=== PATIENT | male | born 1940 | race African-American/Black ===

== ENCOUNTER 2017-04-18 06:08 | Day surgery (SDC) | payer MEDICARE, OTHER ==
[2017-04-18] MEDS ORDERED: BRIMONIDINE 0.2% OPHTH DROPS 5 ML ONE ×2 (06:27→07:17)
[2017-04-18] MEDS ORDERED: TIMOLOL 0.5% OPHTH DROPS ONE ×2 (06:27→07:18)
[2017-04-18] MEDS ORDERED: PHENYLEPHRINE 2.5% OPHTH 2 ML DROPS ONE (06:29)
[2017-04-18] MEDS ORDERED: KETOROLAC 0.45% OPHTH DROPS ONE (06:29)
[2017-04-18] MEDS ORDERED: PROPARACAINE 0.5% OPHTH DROPS 15 ML ONE ×4 (06:30→13:23)
[2017-04-18] MEDS ORDERED: CYCLOPENTOLATE 1% OPHTH DROPS 2 ML ONE (06:30)
[2017-04-18] MEDS ORDERED: LACTATED RINGERS 1,000 ML IV ONE (06:37)
[2017-04-18] MEDS ORDERED: KETOROLAC 0.45% OPHTH DROPS OPTH ONE (06:46)
[2017-04-18] MEDS ORDERED: PROPARACAINE 0.5% OPHTH DROPS 15 ML OPTH ONE ×2 (06:46→07:42)
[2017-04-18] MEDS ORDERED: CYCLOPENTOLATE 1% OPHTH DROPS 2 ML OPTH ONE (06:46)
[2017-04-18] MEDS ORDERED: PHENYLEPHRINE 2.5% OPHTH 2 ML DROPS OPTH ONE (06:46)
[2017-04-18] MEDS ORDERED: TRIAMCINOLONE PF 40 MG/ML VIAL ONE (07:10)
[2017-04-18] MEDS ORDERED: ACETYLCHOLINE 20 MG/2 ML KIT IO ONE (07:10)
[2017-04-18] MEDS ORDERED: MIDAZOLAM 2 MG/2 ML VIAL IVP ONE (07:30)
[2017-04-18] MEDS ORDERED: BRIMONIDINE 0.2% OPHTH DROPS 5 ML OPTH ONE (07:41)
[2017-04-18] MEDS ORDERED: EPINEPHrine 1 MG/ML AMP IVP ONE (07:41)
[2017-04-18] MEDS ORDERED: CHONDR SULF/HYALURONATE SYRINGE IO ONE (07:42)
[2017-04-18] MEDS ORDERED: TRIAMCIN/MOXIFLOX/VANCO 1 ML VIAL IO ONE ×3 (07:42)
[2017-04-18] MEDS ORDERED: TIMOLOL 0.5% OPHTH DROPS OPTH ONE (07:42)
[2017-04-18] MEDS ORDERED: BSS/LIDOCAINE/EPINEPHRINE 1 ML SYRINGE IO ONE ×2 (07:42)
[2017-04-18 08:29] VITALS: BP 139/65
--- NOTE | 2017-04-19 02:43 | OPERATIVE REPORT ---
DATE OF SURGERY: 04/18/2017 00:00:00 PREOPERATIVE DIAGNOSIS: Significant cataract right eye. This is his first cataract surgery. POSTOPERATIVE DIAGNOSIS: Significant cataract right eye. This is his first cataract surgery. NAME OF PROCEDURE: Phacoemulsification posterior chamber intraocular lens implant right eye. SURGEON: Leroy Gong M.D. ANESTHESIA: Monitored anesthesia care. COMPLICATIONS: None. OPERATIVE INDICATIONS: This is a 76-year-old man with progressive vision loss in the right eye due to 2+ nuclear sclerotic, 2-3+ cortical and vacuolar cataract. Best corrected visual acuity was 20/25 wi th glare to 20/40 in the right eye. INDICATIONS FOR SURGERY: Difficulty reading, difficulty seeing words, closed captions and game scores on TV. Difficulty driving at low light or night and difficulty driving at night because of headlight s from other vehicles and/or street lights. He was consented at length concerning risks and benefits of cataract surgery after which he expressed a desire to proceed with surgery. OPERATIVE PROCEDURE: The patient was taken into OR #2 and placed under monitored anesthesia care. A s urgical timeout was conducted confirming correct patient, correct procedure and correct surgical site . He was placed under the LenSx laser and his eye docked with a laser interface. Laser performed a ca psulotomy and lens softening, phaco-wounds and ocular keratotomy incisions. He was then moved to the operating microscope, given topical anesthesia and prepped and draped in the usual sterile fashion. T he eye was entered at 12 and 9 o'clock positions. Intracameral Shugarcaine was injected into the ante rior chamber followed by Viscoat. Capsulorhexis flap created by the LenSx laser was removed from the anterior chamber. Nucleus was hydrodissected and phacoemulsification. Cortex was evacuated using auto mated and infusion aspiration. Provisc was injected in the capsular bag and a 19.0 Diopter intraocula r lens inserted into the bag. Approximately 0.8 mL of a mixture of triamcinolone, moxifloxacin, vanco mycin was injected in the subconjunctival and superior quadrant for infection and inflammation prophy laxis. I/A was used to evacuate the viscoelastic structures. The eye was inflated to a physiologic pr essure using balanced salt solution and found to be watertight. The patient was taken from the operat ing room in good condition and postoperative instructions. JOB #: [id number] EXT JOB #:[id number]
== END 2017-04-18 06:09 | disposition home or self-care (01) ==
LOC: SDS 06:08
PROVIDERS: ATTEND Ophthalmology
PROC: 08RJ3JZ Replacement of Right Lens with Synthetic Substitute, Percutaneous Approach (ICD-10-PCS; principal; 2017-04-18 07:30)
DX: E11.36 Type 2 diabetes mellitus with diabetic cataract (principal); H25.811 Combined forms of age-related cataract, right eye; M19.90 Unspecified osteoarthritis, unspecified site; D47.Z9 Other specified neoplasms of uncertain behavior of lymphoid, hematopoietic and related tissue; E78.5 Hyperlipidemia, unspecified; Z83.3 Family history of diabetes mellitus; Z80.9 Family history of malignant neoplasm, unspecified; Z79.82 Long term (current) use of aspirin; Z79.84 Long term (current) use of oral hypoglycemic drugs
CPT/HCPCS: 66984; A9270; J3490; J7120; V2632

== ENCOUNTER 2017-05-31 10:19 | Emergency (ER) | payer MEDICARE, OTHER ==
[2017-05-31 11:42] LABS: BASOPHILS % (AUTO) 0.8 %; EOSINOPHILS # (AUTO) 0.1 10^3/uL (0.0-0.7); EOSINOPHILS % (AUTO) 2.9 %; HCT - HEMATOCRIT 44.5 % (42.0-52.0); HGB - HEMOGLOBIN 14.7 g/dL (14.0-18.0); LYMPHOCYTES # (AUTO) 1.1 10^3/uL (1.5-3.5); LYMPHOCYTES % (AUTO) 22.2 %; MEAN CORPUSCULAR HEMOGLOBIN 29.8 pg (27.0-31.0); MEAN CORPUSCULAR VOLUME 90.5 fL (80.0-94.0); MONOCYTES # (AUTO) 0.4 10^3/uL (0.0-1.0); MONOCYTES % (AUTO) 8.1 %; NEUTROPHILS # (AUTO) 3.2 10^3/uL (1.5-6.6); RED BLOOD COUNT 4.92 10^6/uL (4.70-6.10); RED CELL DISTRIBUTION WIDTH 14.6 % (12.0-15.0); UNCORRECTED WHITE BLOOD COUNT 4.9 x10^3/uL; WHITE BLOOD COUNT 4.9 x10^3/uL (4.8-10.8)
[2017-05-31 11:55] LABS: ALBUMIN/GLOBULIN RATIO 1.3 (1.0-2.2); BILIRUBIN,TOTAL 0.6 mg/dL (0.2-1.0); CALCIUM 10.1 mg/dL (8.5-10.3); POTASSIUM 4.5 mmol/L (3.5-5.0); TOTAL PROTEIN 7.7 g/dL (6.7-8.2)
--- NOTE | 2017-05-31 12:23 | ED Physician Documentation ---
PD HPI FOCAL NEURO - Stated complaint Stated Complaint: DIZZY - Chief complaint Chief Complaint: Neuro - History obtained from History obtained from: Patient - History of Present Illness Timing - onset: Other (Very mildly for the last week but more suddenly today at 5 AM when getting out of bed he has been vertiginous, sometimes worse with head motion but sometimes just with looking straight forward. There is no associated headache or nausea. 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 This has left him with some movement difficulties although he does not have any disability on a daily basis.) Review of Systems Constitutional: denies: Fever, Chills Ears: denies: Loss of hearing, Ear pain Respiratory: denies: Dyspnea, Cough GI: denies: Abdominal Pain, Nausea, Vomiting PD PAST MEDICAL HISTORY - Past Medical History Cardiovascular: High cholesterol Respiratory: None Endocrine/Autoimmune: Type 1 diabetes GI: None : None HEENT: None Psych: None Musculoskeletal: Osteoarthritis Derm: None Other Past Medical History: POEM syndrome - Past Surgical History General: Colonoscopy - Present Medications Home Medications: Ambulatory Orders Medication Instructions Recorded Confirmed Aspirin 81 mg PO DAILY 04/17/17 04/17/17 Losartan Potassium 25 mg PO DAILY 04/17/17 04/17/17 Simvastatin 20 mg PO DAILY 04/17/17 04/17/17 metFORMIN [Glucophage] 850 mg PO BID 04/17/17 04/17/17 Meclizine [Antivert] 25 mg PO Q6H PRN #20 tablet 05/31/17 - Allergies Allergies/Adverse Reactions: Allergies Allergy/AdvReac Type Severity Reaction Status Date / Time lisinopril Allergy Edema Verified 04/17/17 13:33 - Social History Does the pt smoke?: No Smoking Status: Never smoker Does the pt drink ETOH?: No Does the pt have substance abuse?: No - Family History Family history: reports: Non contributory - Immunizations Immunizations are current?: Yes - POLST Patient has POLST: No PD ED PE NORMAL - Vitals Vital signs reviewed: Yes - General General: Alert and oriented X 3, No acute distress - HEENT HEENT: PERRL, EOMI - Neck Neck: Supple, no meningeal sign, No bony TTP - Cardiac Cardiac: RRR, No murmur - Respiratory Respiratory: No respiratory distress, Clear bilaterally - Abdomen Abdomen: Normal bowel sounds, Soft, Non tender - Back Back: No CVA TTP, No spinal TTP - Extremities Extremities: No edema, No calf tenderness / cord - Neuro Neuro: No motor deficit, No sensory deficit - Psych Psych: Normal mood, Normal affect NIHSS - Time Time: 12:15 - Level of Consciousness Level of consciousness: (0) Alert, Keenly responsive LOC Questions: (0) Answers both Q's correct LOC Commands: (0) Performs both correctly - Gaze Best Gaze: (0) Normal - Visual Visual: (0) No loss - Facial Palsy Facial Palsy: (0) Normal, symmetrical movement - Motor Arms (both separate) Motor Arm (right): (0) No drift Motor Arm (left): (0) No drift - Motor Legs (both separate) Motor Leg (right): (0) No drift Motor Leg (left): (0) No drift - Limb Ataxia Limb Ataxia: (2) Present in 2 limbs (Very mild in the Left upper and lower extremities) - Sensory Sensory: (0) Normal - Best Language Best Language: (0) No aphasia - Dysarthria Dysarthria: (0) Normal - Extinction and Inattention (formally neg Extinction and inattention: (0) No abnormality - Total Score/Results Total Score/Result: 2 Results - Vitals Vitals: Vital Signs - 24 hr 05/31/17 05/31/17 10:27 14:45 Temperature 37.1 C Heart Rate 75 72 Respiratory 16 16 Rate Blood Pressure 145/75 H 139/67 H O2 Saturation 100 98 Oxygen O2 Source Room air - EKG (time done) 1146 Rate: Rate (enter#) (67) Rhythm: NSR [place]: Normal Intervals: Normal NE QRS: LVH Ischemia: Normal ST segments Computer interpretation: Agree with computer - Labs Labs: Laboratory Tests 05/31/17 05/31/17 05/31/17 11:34 11:34 11:34 WBC 4.9 RBC 4.92 Hgb 14.7 Hct 44.5 MCV 90.5 MCH 29.8 MCHC 33.0 RDW 14.6 Plt Count 163 MPV 8.0 Neut # 3.2 Lymph # 1.1 L [place] # 0.4 Eos # 0.1 Baso # 0.0 Absolute Nucleated RBC 0.00 Nucleated RBCs 0.0 Sodium 137 Potassium 4.5 Chloride 102 Carbon Dioxide 28 Anion Gap 7.0 BUN 23 H Creatinine 1.0 Estimated GFR (MDRD) 89 Glucose 107 H Calcium 10.1 Total Bilirubin 0.6 AST 18 ALT 22 Alkaline Phosphatase 75 Troponin I < 0.04 Total Protein 7.7 Albumin 4.3 Globulin 3.4 Albumin/Globulin Ratio 1.3 Lipase 36 Urine Color Urine Clarity Urine pH Ur Specific [place] Urine Protein Urine Glucose (UA) Urine Ketones Urine Occult Blood Urine Nitrite Urine Bilirubin Urine Urobilinogen Ur Leukocyte Esterase Urine RBC Urine WBC Ur Squamous Epith Cells Urine Bacteria Ur Microscopic Review Urine Culture Comments 05/31/17 13:54 WBC RBC Hgb Hct MCV MCH MCHC RDW Plt Count MPV Neut # Lymph # [place] # Eos # Baso # Absolute Nucleated RBC Nucleated RBCs Sodium Potassium Chloride Carbon Dioxide Anion Gap BUN Creatinine Estimated GFR (MDRD) Glucose Calcium Total Bilirubin AST ALT Alkaline Phosphatase Troponin I Total Protein Albumin Globulin Albumin/Globulin Ratio Lipase Urine Color YELLOW Urine Clarity CLEAR Urine pH 7.0 Ur Specific [place] 1.020 Urine Protein 30 H Urine Glucose (UA) NEGATIVE Urine Ketones NEGATIVE Urine Occult Blood NEGATIVE Urine Nitrite NEGATIVE Urine Bilirubin NEGATIVE Urine Urobilinogen 0.2 (NORMAL) Ur Leukocyte Esterase NEGATIVE Urine RBC 0-5 Urine WBC 0-3 Ur Squamous Epith Cells NONE SEEN Urine Bacteria None Seen Ur Microscopic Review INDICATED Urine Culture Comments NOT INDICATED - Rads (name of study) MRI brain Radiology: Prelim report reviewed (No CVA, some small vessel ischemic change and mucosal thickening) PD MEDICAL DECISION MAKING - ED course ED course: 76-year-old gentleman presents with vertigo, some features of peripheral vertigo but some features concerning for central cause, as such an MRI was pursued without evidence of CVA. Departure - Departure Disposition: Home, Self Care Clinical Impression: Vertigo Condition: Good Record reviewed to determine appropriate education?: Yes Instructions: ED Vertigo Unspecified Prescriptions: Meclizine [Antivert] 25 mg PO Q6H PRN #20 tablet PRN Reason: Dizziness Comments: Call your doctor to arrange a follow-up appointment, make the next available appointment. In the interim, return anytime if worse or if new symptoms develop. Your blood pressure was elevated today on check into the emergency department. This does not mean that you have hypertension, it is a common phenomenon to come to the emergency department and have elevated blood pressure. I recommend that she see your primary care physician within the week to have it rechecked when you are feeling better.
[2017-05-31 14:26] LABS: BILIRUBIN,URINE NEGATIVE (NEGATIVE)
[2017-05-31 14:29] LABS: UA w/ MICROSCOPIC CHARGE YES
[2017-05-31 14:38] LABS: WBC,URINE 0-3 /HPF (0-3)
[2017-05-31 14:39] LABS: UR CULTURE IF IND NOT INDICATED
[2017-05-31 15:00] VITALS: BP 139/67
--- NOTE | 2017-05-31 15:05 | MRI Preliminary Report ---
Exam: MRI Brain W/O IMPRESSION: 1. No acute CVA 2. FLAIR hyperintensities in the cerebral hemisphere white matter bilaterally are nonspecific. Common ly, this is seen secondary to small vessel ischemic change. 3. Mild pansinus mucosal thickening [facility] SITE ID: [id number]
--- NOTE | 2017-05-31 16:28 | MRI Report ---
EXAM: MRI BRAIN WITHOUT CONTRAST EXAM DATE: 05/31/2017 02:51 PM. CLINICAL HISTORY: Vertigo on waking this morning. Vertigo last week. Radiation therapy 2011 with chem otherapy July 2016. POEMS syndrome. COMPARISON: None. TECHNIQUE: Multiplanar, multisequence T1-weighted and fluid-sensitive MR sequences of the brain were performed. Sequences optimized for routine evaluation. Other: None. IV Contrast: None. FINDINGS: No abnormal diffusion signal or magnetic susceptibility is identified in the brain parenchyma. No cerebellar tonsillar ectopia is present. Ventricles and sulci are within normal limits for the patient's age. Punctate FLAIR hyperintensities in the cerebral hemisphere white matter bilaterally are noted. Somewhat more confluent FLAIR hyperint ense signal is seen in the deep white matter of each cerebral hemisphere. No abnormal signal is seen in either cerebellum or in the brainstem. Expected flow voids are seen in the major intracranial vessels at the skull base. No mass is present in either orbit. An expected flow void is seen in the superior sagittal sinus. No abnormal T1 shortening is present in the brain parenchyma. IMPRESSION: 1. No acute CVA 2. FLAIR hyperintensities in the cerebral hemisphere white matter bilaterally are nonspecific. Common ly, this is seen secondary to small-vessel ischemic change. 3. Mild pansinus mucosal thickening. [facility] Referring Provider Line: [phone] SITE ID: [id number]
== END 2017-05-31 16:00 | disposition home or self-care (01) ==
LOC: ED 10:19
DX: R42 Dizziness and giddiness (principal); R03.0 Elevated blood-pressure reading, without diagnosis of hypertension; E10.42 Type 1 diabetes mellitus with diabetic polyneuropathy; Z79.84 Long term (current) use of oral hypoglycemic drugs; E78.00 Pure hypercholesterolemia, unspecified; M19.90 Unspecified osteoarthritis, unspecified site; Z79.82 Long term (current) use of aspirin
CPT/HCPCS: 36415; 70551; 80053; 81001; 81003; 83690; 84484; 85025; 87086; 93005; 99283; 99284

== ENCOUNTER 2017-08-08 06:09 | Day surgery (SDC) | payer MEDICARE, OTHER ==
[~2017-08-08 06:09] MED LIST: MIDAZOLAM 2 MG/2 ML VIAL IVP ONE
[2017-08-08] MEDS ORDERED: BRIMONIDINE 0.2% OPHTH DROPS 5 ML ONE ×2 (06:26→07:11)
[2017-08-08] MEDS ORDERED: PHENYLEPHRINE 2.5% OPHTH 2 ML DROPS ONE ×3 (06:27→06:57)
[2017-08-08] MEDS ORDERED: KETOROLAC 0.45% OPHTH DROPS ONE ×3 (06:27→06:57)
[2017-08-08] MEDS ORDERED: PROPARACAINE 0.5% OPHTH DROPS 15 ML ONE ×3 (06:28→06:57)
[2017-08-08] MEDS ORDERED: CYCLOPENTOLATE 1% OPHTH DROPS 2 ML ONE ×3 (06:28→06:57)
[2017-08-08] MEDS ORDERED: LACTATED RINGERS 500 ML IV ONE ×2 (06:45→07:31)
[2017-08-08] MEDS ORDERED: TIMOLOL 0.5% OPHTH DROPS ONE (07:11)
[2017-08-08] MEDS ORDERED: PROPARACAINE 0.5% OPHTH DROPS 15 ML LEFTEYE ONE (07:32)
[2017-08-08] MEDS ORDERED: BRIMONIDINE 0.2% OPHTH DROPS 5 ML OPTH ONE (07:42)
[2017-08-08] MEDS ORDERED: EPINEPHrine 1 MG/ML AMP IVP ONE (07:42)
[2017-08-08] MEDS ORDERED: TIMOLOL 0.5% OPHTH DROPS OPTH ONE (07:42)
[2017-08-08] MEDS ORDERED: CHONDR SULF/HYALURONATE SYRINGE IO ONE (07:42)
[2017-08-08] MEDS ORDERED: BSS/LIDOCAINE/EPINEPHRINE 1 ML SYRINGE IO ONE ×2 (07:45)
[2017-08-08] MEDS ORDERED: TRIAMCIN/MOXIFLOX/VANCO 1 ML VIAL IO ONE ×2 (07:45)
[2017-08-08 08:22] VITALS: BP 141/70
--- NOTE | 2017-08-08 08:31 | OPERATIVE REPORT ---
DATE OF SURGERY: 08/08/2017 00:00:00 PREOPERATIVE DIAGNOSIS: Visually significant cataract, left eye. Cataract surgery was performed on the right eye on 04/18/2017. POSTOPERATIVE DIAGNOSIS: Visually significant cataract, left eye. Cataract surgery was performed on the right eye on 04/18/2017. NAME OF PROCEDURE: Phacoemulsification posterior chamber intraocular lens implant, left eye. SURGEON: Leroy Gong MD. ANESTHESIA: Monitored anesthesia care. COMPLICATIONS: None. OPERATIVE INDICATIONS: This is a 76-year-old man with progressive vision loss in the left eye due to a 2+ nuclear sclerotic, 3+ cortical, and vacuolar cataract. Best corrected visual acuity was 20/30 with glare to 20/60 in the left eye. Indications for surgery were overall decrease in vision, difficulty seeing words on the computer screen, difficulty reading, difficulty seeing words and game scores on TV, difficulty seeing street signs, difficulty driving in low light or at night, difficulty driving at night because of headlights from other vehicles. He was consented at length concerning the risks and benefits of cataract surgery, after which he expressed a desire to proceed with surgery. OPERATIVE PROCEDURE: The patient was taken into OR #3 and placed under monitored anesthesia care. A surgical time-out was conducted confirming the correct patient, correct procedure and correct surgical site. He was placed under the LenSx laser and his eye docked to the laser interface. The laser performed the capsulotomy, lens softening, phaco wounds, and arcuate keratotomy incisions. He was then moved to the operating microscope, given topical anesthesia, and then prepped and draped in the usual sterile fashion. The eye was entered at the 6- and 3 o'clock positions. Intracameral Shugarcaine was injected into the anterior chamber, followed by Viscoat. Capsulorrhexis flap created by the LenSx laser was removed from the anterior chamber. The nucleus was hydrodissected and phacoemulsified. The cortex was evacuated using automated infusion aspiration. Provisc was injected in the capsular bag and a 19.5 diopter intraocular lens was inserted into the bag. Approximately 0.8 mL of a mixture of triamcinolone, moxifloxacin, and vancomycin was injected subconjunctivally in the superior quadrant for infection and inflammation prophylaxis. I/A was used to evacuate the viscoelastic materials. The eye was inflated to a physiologic pressure using balanced salt solution and found to be watertight. The patient was taken from the operating room in good condition and given postoperative instructions. JOB #: [id number] EXT JOB #:[id number] [email or web address]
== END 2017-08-08 06:10 | disposition home or self-care (01) ==
LOC: SDS 06:09
PROVIDERS: ATTEND Ophthalmology
PROC: 08RK3JZ Replacement of Left Lens with Synthetic Substitute, Percutaneous Approach (ICD-10-PCS; principal; 2017-08-08 07:30)
DX: H25.812 Combined forms of age-related cataract, left eye (principal); Z79.82 Long term (current) use of aspirin
CPT/HCPCS: 66984; A9270; J3490; J7120; V2632

== ENCOUNTER 2018-01-22 11:49 | Outpatient (CLI) | payer OTHER ==
--- NOTE | 2018-01-22 12:50 | XRAY Report ---
LEFT HIP AND PELVIS: 01/22/2018 CLINICAL INDICATION: Pain. FINDINGS: Frontal view of the hips and pelvis and frogleg lateral view of the left hip demonstrate mild osteoarthritis. There is no evidence of acute fracture. No radiopaque foreign body is seen in the soft tissues. IMPRESSION: MILD OSTEOARTHRITIS. TD: 01/22/2018 12:49
== END 2018-01-22 11:50 | disposition home or self-care (01) ==
LOC: DI 11:49
PROVIDERS: ATTEND Internal Medicine
DX: M25.552 Pain in left hip (principal); M16.12 Unilateral primary osteoarthritis, left hip

== ENCOUNTER 2018-07-21 09:51 | Outpatient (CLI) | payer OTHER ==
[2018-07-21 10:13] LABS: BASOPHILS % (AUTO) 0.9 %; EOSINOPHILS # (AUTO) 0.2 10^3/uL (0.0-0.7); HGB - HEMOGLOBIN 14.6 g/dL (14.0-18.0); LYMPHOCYTES # (AUTO) 1.1 10^3/uL (1.5-3.5); LYMPHOCYTES % (AUTO) 26.9 %; MEAN CORPUSCULAR HEMOGLOBIN 30.4 pg (27.0-31.0); MEAN CORPUSCULAR HGB CONC 33.8 g/dL (32.0-36.0); MEAN CORPUSCULAR VOLUME 89.7 fL (80.0-94.0); MEAN PLATELET VOLUME 7.8 fL (7.4-11.4); MONOCYTES # (AUTO) 0.3 10^3/uL (0.0-1.0); MONOCYTES % (AUTO) 8.1 %; NEUTROPHILS # (AUTO) 2.4 10^3/uL (1.5-6.6); NEUTROPHILS % (AUTO) 60.1 %; PLT - PLATELET COUNT 212 10^3/uL (130-450); RED BLOOD COUNT 4.81 10^6/uL (4.70-6.10); RED CELL DISTRIBUTION WIDTH 14.6 % (12.0-15.0); WHITE BLOOD COUNT 4.1 x10^3/uL (4.8-10.8)
[2018-07-21 10:27] LABS: HEMOGLOBIN A1C 0.78 g/dL; HEMOGLOBIN A1C % 6.6 % (4.6-6.2)
[2018-07-21 10:40] LABS: ALBUMIN 4.2 g/dL (3.2-5.5); ALBUMIN/GLOBULIN RATIO 1.1 (1.0-2.2); ALKALINE PHOSPHATASE 124 IU/L (42-121); ALT ALANINE AMINOTRANSFERASE 24 IU/L (10-60); AST ASPARTATE AMINOTRANSFERASE 21 IU/L (10-42); BILIRUBIN,TOTAL 0.8 mg/dL (0.2-1.0); BUN - BLOOD UREA NITROGEN 18 mg/dL (6-20); CALCIUM 10.1 mg/dL (8.5-10.3); CARBON DIOXIDE - CO2 28 mmol/L (21-32); CHLORIDE 100 mmol/L (101-111); CHOL/HDL RATIO 5.4 (<5.0); CHOLESTEROL 236 mg/dL; GFR - MDRD 88 (>89); GLUCOSE 135 mg/dL (70-100); HDL CHOLESTEROL 44 mg/dL; LDL CHOLESTEROL,CALCULATED 119 mg/dL; LDL/HDL RATIO 2.7 (<3.6); SODIUM 138 mmol/L (135-145); TOTAL PROTEIN 7.9 g/dL (6.7-8.2); VLDL CHOLESTEROL 73 mg/dL
[2018-07-21 11:21] LABS: THYROID STIMULATING HORMONE 1.76 uIU/mL (0.34-5.60)
== END 2018-07-21 09:52 | disposition home or self-care (01) ==
LOC: LAB 09:51
PROVIDERS: ATTEND Internal Medicine
DX: I10 Essential (primary) hypertension (principal); G64 Other disorders of peripheral nervous system; E11.9 Type 2 diabetes mellitus without complications; E78.5 Hyperlipidemia, unspecified; D47.2 Monoclonal gammopathy; M25.50 Pain in unspecified joint; Z12.5 Encounter for screening for malignant neoplasm of prostate; Z79.899 Other long term (current) drug therapy
CPT/HCPCS: 36415; 80053; 80061; 82607; 83036; 83721; 84443; 85025

== ENCOUNTER 2018-12-25 07:00 | Outpatient (CLI) | payer OTHER ==
[2018-12-25 07:33] LABS: BUN - BLOOD UREA NITROGEN 19 mg/dL (6-20); CALCIUM 9.9 mg/dL (8.5-10.3); CARBON DIOXIDE - CO2 28 mmol/L (21-32); CHLORIDE 99 mmol/L (101-111); CHOL/HDL RATIO 3.2 (<5.0); CHOLESTEROL 119 mg/dL; CREATININE 1.2 mg/dL (0.6-1.2); GFR - MDRD 71 (>89); GLUCOSE 138 mg/dL (70-100); HDL CHOLESTEROL 37 mg/dL; LDL CHOLESTEROL,CALCULATED 59 mg/dL; LDL/HDL RATIO 1.6 (<3.6); SODIUM 136 mmol/L (135-145); VLDL CHOLESTEROL 23 mg/dL
[2018-12-25 07:51] LABS: HB2 TOTAL 15.6 g/dL; HEMOGLOBIN A1C 0.66 g/dL
== END 2018-12-25 07:01 | disposition home or self-care (01) ==
LOC: LAB 07:00
PROVIDERS: ATTEND Internal Medicine
DX: E11.9 Type 2 diabetes mellitus without complications (principal); E78.5 Hyperlipidemia, unspecified; Z79.899 Other long term (current) drug therapy
CPT/HCPCS: 36415; 80048; 80061; 82607; 83036; 83721

== ENCOUNTER 2019-07-29 10:06 | Outpatient (CLI) | payer OTHER ==
[2019-07-29 10:33] LABS: BASOPHILS % (AUTO) 0.6 %; EOSINOPHILS # (AUTO) 0.1 10^3/uL (0.0-0.7); EOSINOPHILS % (AUTO) 2.8 %; HGB - HEMOGLOBIN 15.6 g/dL (14.0-18.0); LYMPHOCYTES # (AUTO) 1.1 10^3/uL (1.5-3.5); LYMPHOCYTES % (AUTO) 29.8 %; MEAN CORPUSCULAR HEMOGLOBIN 30.6 pg (27.0-31.0); MEAN CORPUSCULAR HGB CONC 32.7 g/dL (32.0-36.0); MEAN CORPUSCULAR VOLUME 93.5 fL (80.0-94.0); MEAN PLATELET VOLUME 9.8 fL (7.4-11.4); MONOCYTES # (AUTO) 0.3 10^3/uL (0.0-1.0); MONOCYTES % (AUTO) 8.5 %; PLT - PLATELET COUNT 188 10^3/uL (130-450); RED CELL DISTRIBUTION WIDTH 13.2 % (12.0-15.0); WHITE BLOOD COUNT 3.5 x10^3/uL (4.8-10.8)
[2019-07-29 10:52] LABS: ALBUMIN 4.3 g/dL (3.2-5.5); ALBUMIN/GLOBULIN RATIO 1.2 (1.0-2.2); ALKALINE PHOSPHATASE 77 IU/L (42-121); ALT ALANINE AMINOTRANSFERASE 22 IU/L (10-60); AST ASPARTATE AMINOTRANSFERASE 19 IU/L (10-42); BILIRUBIN,TOTAL 0.8 mg/dL (0.2-1.0); BUN - BLOOD UREA NITROGEN 20 mg/dL (6-20); CALCIUM 10.5 mg/dL (8.5-10.3); CARBON DIOXIDE - CO2 30 mmol/L (21-32); CHLORIDE 102 mmol/L (101-111); CHOL/HDL RATIO 3.8 (<5.0); CHOLESTEROL 149 mg/dL; CK- CREATINE KINASE 98 IU/L (22-269); CREATININE 1.1 mg/dL (0.6-1.2); GFR - MDRD 79 (>89); GLUCOSE 125 mg/dL (70-100); HDL CHOLESTEROL 39 mg/dL; LDL CHOLESTEROL,CALCULATED 71 mg/dL; LDL/HDL RATIO 1.8 (<3.6); SODIUM 140 mmol/L (135-145); TOTAL PROTEIN 7.9 g/dL (6.7-8.2); VLDL CHOLESTEROL 39 mg/dL
[2019-07-29 11:06] LABS: THYROID STIMULATING HORMONE 2.33 uIU/mL (0.34-5.60)
[2019-07-29 11:41] LABS: HB2 TOTAL 16.2 g/dL; HEMOGLOBIN A1C 0.76 g/dL; HEMOGLOBIN A1C % 6.4 % (4.6-6.2)
[2019-07-31 07:32] LABS: HEPATITIS C ANTIBODY NON-REACTIVE (NON-REACTIVE)
== END 2019-07-29 10:07 | disposition home or self-care (01) ==
LOC: LAB 10:06
PROVIDERS: ATTEND Internal Medicine
DX: Z11.59 Encounter for screening for other viral diseases (principal); Z12.5 Encounter for screening for malignant neoplasm of prostate; Z13.6 Encounter for screening for cardiovascular disorders; Z79.899 Other long term (current) drug therapy; F43.10 Post-traumatic stress disorder, unspecified; I10 Essential (primary) hypertension; R80.9 Proteinuria, unspecified; G64 Other disorders of peripheral nervous system; E11.9 Type 2 diabetes mellitus without complications; E78.5 Hyperlipidemia, unspecified; C90.30 Solitary plasmacytoma not having achieved remission; D47.2 Monoclonal gammopathy
CPT/HCPCS: 36415; 80053; 80061; 82306; 82550; 82607; 83036; 83721; 84153; 84443; 85025; 86803

== ENCOUNTER 2019-11-19 10:25 | Emergency (ER) | payer OTHER ==
[2019-11-19 10:39] VITALS: BP 175/84
[2019-11-19 11:16] LABS: VBG BASE EXCESS 1.3 mmol/L (-2 - +2); VBG PCO2 53.1 mmHg (41-51); VBG PH 7.343 (7.31-7.41); VBG PO2 21.8 mmHg (25-47); VBG TOTAL CO2 29.8 mmol/L (24-29)
[2019-11-19 11:22] LABS: BASOPHILS % (AUTO) 0.6 %; EOSINOPHILS # (AUTO) 0.1 10^3/uL (0.0-0.7); HGB - HEMOGLOBIN 15.5 g/dL (14.0-18.0); LYMPHOCYTES % (AUTO) 30.4 %; MEAN CORPUSCULAR HEMOGLOBIN 30.7 pg (27.0-31.0); MEAN CORPUSCULAR HGB CONC 33.8 g/dL (32.0-36.0); MEAN CORPUSCULAR VOLUME 90.9 fL (80.0-94.0); MEAN PLATELET VOLUME 10.2 fL (7.4-11.4); MONOCYTES # (AUTO) 0.3 10^3/uL (0.0-1.0); MONOCYTES % (AUTO) 9.9 %; NEUTROPHILS # (AUTO) 1.9 10^3/uL (1.5-6.6); NEUTROPHILS % (AUTO) 55.8 %; PLT - PLATELET COUNT 205 10^3/uL (130-450); RED BLOOD COUNT 5.05 10^6/uL (4.70-6.10); RED CELL DISTRIBUTION WIDTH 12.6 % (12.0-15.0); WHITE BLOOD COUNT 3.4 x10^3/uL (4.8-10.8)
[2019-11-19 11:30] LABS: ALBUMIN 4.1 g/dL (3.2-5.5); ALBUMIN/GLOBULIN RATIO 1.2 (1.0-2.2); ALKALINE PHOSPHATASE 81 IU/L (42-121); ALT ALANINE AMINOTRANSFERASE 24 IU/L (10-60); AST ASPARTATE AMINOTRANSFERASE 20 IU/L (10-42); BILIRUBIN,TOTAL 0.9 mg/dL (0.2-1.0); BUN - BLOOD UREA NITROGEN 17 mg/dL (6-20); CALCIUM 10.3 mg/dL (8.5-10.3); CARBON DIOXIDE - CO2 26 mmol/L (21-32); CHLORIDE 100 mmol/L (101-111); CREATININE 1.1 mg/dL (0.6-1.2); GFR - MDRD 79 (>89); GLUCOSE 369 mg/dL (70-100); LIPASE 46 U/L (22-51); SODIUM 136 mmol/L (135-145); TOTAL PROTEIN 7.4 g/dL (6.7-8.2)
[2019-11-19 11:51] LABS: KETONES, SERUM (ACETEST) NEGATIVE (NEGATIVE)
--- NOTE | 2019-11-19 12:21 | ED Physician Documentation ---
History of Present Illness - Stated complaint Stated Complaint: HIGH GLUCOSE READINGS - Chief complaint Chief Complaint: General - History of Present Illness Timing: Other (Is a very pleasant 79-year-old gentleman with longstanding type 2 diabetes diagnosed in 1997. He was on insulin at the outset, and also was on insulin once a day for about a year in 2011. Currently just on metformin which was increased recently. Over the last month he is noted blood sugars in the high 300s generally associated with polyuria and polydipsia. No other complaints. He has been the emergency dept at the [facility] twice this week and received some insulin there but no prescription. He is working on getting a PCP but having some trouble.) - Additonal information Additional information: He had an A1c done at 1 of those visits to the [facility] and it was 11. Review of Systems Constitutional: reports: Fatigue. denies: Fever, Chills, Myalgias Cardiac: denies: Chest pain / pressure, Palpitations Respiratory: denies: Dyspnea, Cough GI: denies: Abdominal Pain, Nausea, Vomiting, Constipation, Diarrhea, Cam temesis PD PAST MEDICAL HISTORY - Past Medical History Cardiovascular: Hypertension, High cholesterol Respiratory: None Endocrine/Autoimmune: Type 1 diabetes GI: None : None HEENT: None Psych: None Musculoskeletal: None Derm: None - Past Surgical History Past Surgical History: No General: Colonoscopy HEENT: Cataracts - Present Medications Home Medications: Ambulatory Orders Medication Instructions Recorded Confirmed Aspirin 81 mg PO DAILY 04/17/17 04/17/17 Losartan Potassium 25 mg PO DAILY 04/17/17 04/17/17 Simvastatin 20 mg PO DAILY 04/17/17 04/17/17 metFORMIN [Glucophage] 850 mg PO BID 04/17/17 04/17/17 Meclizine [Antivert] 25 mg PO Q6H PRN #20 tablet 05/31/17 Insulin Glargine [Lantus Solostar] 10 unit SUBQ DAILY #1 pen 11/19/19 - Allergies Allergies/Adverse Reactions: Allergies Allergy/AdvReac Type Severity Reaction Status Date / Time lisinopril Allergy Edema Verified 11/19/19 10:35 - Social History Does the pt smoke?: No Smoking Status: Never smoker Does the pt drink ETOH?: No Does the pt have substance abuse?: No - Immunizations Immunizations are current?: Yes - POLST Patient has POLST: No PD ED PE NORMAL - Vitals Vital signs reviewed: Yes - General General: Alert and oriented X 3, No acute distress - HEENT HEENT: PERRL, EOMI - Neck Neck: Supple, no meningeal sign, No bony TTP - Cardiac Cardiac: RRR, No murmur - Respiratory Respiratory: No respiratory distress, Clear bilaterally - Abdomen Abdomen: Non tender - Extremities Extremities: No edema, No calf tenderness / cord - Neuro Neuro: Alert and oriented X 3, Normal speech Results - Vitals Vitals: Vital Signs - 24 hr 11/19/19 10:35 Temperature 36.5 C Heart Rate 87 Respiratory 15 Rate Blood Pressure 175/84 H O2 Saturation 97 Oxygen O2 Source Room air - Labs Labs: Laboratory Tests 11/19/19 11/19/19 11/19/19 11:11 11:11 11:11 WBC 3.4 L RBC 5.05 Hgb 15.5 Hct 45.9 MCV 90.9 MCH 30.7 MCHC 33.8 RDW 12.6 Plt Count 205 MPV 10.2 Neut # (Auto) 1.9 Lymph # (Auto) 1.0 L [place] # (Auto) 0.3 Eos # (Auto) 0.1 Baso # (Auto) 0.0 Absolute Nucleated RBC 0.00 Nucleated RBC % 0.0 VBG pH 7.343 VBG pCO2 53.1 H VBG pO2 21.8 L VBG HCO3 28.2 H VBG Total CO2 29.8 H VBG O2 Saturation 38.9 L VBG Base Excess 1.3 Sodium 136 Potassium 4.7 Chloride 100 L Carbon Dioxide 26 Anion Gap 10.0 BUN 17 Creatinine 1.1 Estimated GFR (MDRD) 79 L Glucose 369 H Calcium 10.3 Total Bilirubin 0.9 AST 20 ALT 24 Alkaline Phosphatase 81 Total Protein 7.4 Albumin 4.1 Globulin 3.3 Albumin/Globulin Ratio 1.2 Lipase 46 Serum Ketones NEGATIVE PD MEDICAL DECISION MAKING - ED course ED course: This is a 79-year-old gentleman with uncontrolled diabetes on metformin twice daily. We will start a low-dose of Lantus. He is trying to arrange PCP follow- up. Departure - Departure Disposition: 01 Home, Self Care Clinical Impression: Uncontrolled type 2 diabetes mellitus Qualifiers: Glycemic state: with hyperglycemia Qualified Code(s): E11.65 - Type 2 diabetes mellitus with hyperglycemia Condition: Good Record reviewed to determine appropriate education?: Yes Instructions: ED Injection Pen Using, ED Diabetes General Info Prescriptions: Insulin Glargine [Lantus Solostar] 10 unit SUBQ DAILY #1 pen Comments: I am starting the Lantus at a low dose, 10 units a day, if blood sugars are persistently above 250, you can increase by 2 units/day until you are under 250. Continue your efforts to try to get in [facility] a [facility]. Return as needed.
== END 2019-11-19 12:28 | disposition home or self-care (01) ==
LOC: ED 10:25
DX: E11.65 Type 2 diabetes mellitus with hyperglycemia (principal); Z79.84 Long term (current) use of oral hypoglycemic drugs; I10 Essential (primary) hypertension; Z79.82 Long term (current) use of aspirin
CPT/HCPCS: 36415; 80053; 82009; 82803; 83690; 85025; 99283; 99284

== ENCOUNTER 2020-05-18 08:27 | Emergency (ER) | payer MEDICARE, OTHER ==
[2020-05-18] MEDS ORDERED: BUPIVACAINE 0.5% PF 10 ML VIAL SUBQ STA (09:10)
[2020-05-18] MEDS ORDERED: BUFFERED LIDOCAINE 10 ML SYRINGE SUBQ STA (09:10)
--- NOTE | 2020-05-18 10:08 | XRAY Report ---
PROCEDURE: Foot 3 View LT INDICATIONS: great toe injury TECHNIQUE: 3 views of the foot were acquired. COMPARISON: None available FINDINGS: Bones: There is a transverse fracture seen involving the base of the distal phalanx of the great toe, with mild displacement and minimal comminution. No definite intra-articular involvement is seen. No definite additional fractures are seen. Age-appropriate degenerative changes are seen. Soft tissues: An associated soft tissue injury is seen of the great toe. IMPRESSION: Mildly displaced transverse fracture at the base of the distal phalanx of the great toe, with mild co mminution. There is an associated soft tissue injury. Reviewed by: Pérez Gu MD on 05/18/2020 9:07 AM SAMMY Approved by: Pérez Gu MD on 05/18/2020 9:07 AM SAMMY Station ID: [id number]
[2020-05-18] MEDS ORDERED: ONDANSETRON ODT 4 MG TABLET TL STA (10:57)
--- NOTE | 2020-05-18 11:23 | ED Physician Documentation ---
PD HPI LOWER EXT INJURY - Stated complaint Stated Complaint: LT FOOT INJURY - Chief complaint Chief Complaint: Trauma Ext - History obtained from History obtained from: Patient, Family - History of Present Illness PD HPI LOW EXT INJURY LOCATION: Left, Toe (GREAT TOE) Type of injury: Blunt / blow Where injury occurred: Home Timing - onset: Today Timing - duration: Minutes Timing - details: Abrupt onset, Still present Improved by: Rest, Immobilization Worsened by: Moving, Palpating Associated symptoms: No: Weakness, Numbness Contributing factors: No: Anticoagulated Similar symptoms before: Has not had sx before Recently seen: Not recently seen - Additional information Additional information: 79-year-old male got out of the shower slipped on a rug and slammed his foot into the sill of the shower fracturing his toe and splitting the skin open right behind the nail. He felt that he had opened the joint space. He is coming in now for repair Review of Systems Constitutional: denies: Fever Nose: denies: Congestion Respiratory: denies: Dyspnea, Cough GI: denies: Vomiting PD PAST MEDICAL HISTORY - Past Medical History Cardiovascular: Hypertension, High cholesterol Respiratory: None Endocrine/Autoimmune: Type 1 diabetes GI: None : None HEENT: None Psych: None Musculoskeletal: None Derm: None - Past Surgical History Past Surgical History: No General: Colonoscopy HEENT: Cataracts - Present Medications Home Medications: Ambulatory Orders Medication Instructions Recorded Confirmed Aspirin 81 mg PO DAILY 04/17/17 04/17/17 Losartan Potassium 25 mg PO DAILY 04/17/17 04/17/17 Simvastatin 20 mg PO DAILY 04/17/17 04/17/17 metFORMIN [Glucophage] 850 mg PO BID 04/17/17 04/17/17 Meclizine [Antivert] 25 mg PO Q6H PRN #20 tablet 05/31/17 Insulin Glargine [Lantus Solostar] 10 unit SUBQ DAILY #1 pen 11/19/19 Cephalexin [Keflex] 500 mg PO QID #20 capsule 05/18/20 Hydrocodone/Acetaminophen 1 - 2 each PO Q6H PRN #14 tablet 05/18/20 [Hydrocodone-Acetamin 5-325 mg] - Allergies Allergies/Adverse Reactions: Allergies Allergy/AdvReac Type Severity Reaction Status Date / Time lisinopril Allergy Edema Verified 05/18/20 08:49 - Social History Does the pt smoke?: No Smoking Status: Never smoker Does the pt drink ETOH?: No Does the pt have substance abuse?: No - Immunizations Immunizations are current?: Yes - POLST Patient has POLST: No PD ED PE NORMAL - Vitals Vital signs reviewed: Yes (hypertensive) - General General: Alert and oriented X 3, No acute distress, Well developed/nourished - HEENT HEENT: Atraumatic, PERRL, EOMI - Respiratory Respiratory: No respiratory distress - Derm Derm: Normal color, Warm and dry, No rash - Extremities Extremities: Other (The left great toe is lacerated across the toe just proximal to the toe nail. There is no subungal hematoma. The distal phalange is broken This is visible through the laceration.) Results - Vitals Vitals: Vital Signs - 24 hr 05/18/20 05/18/20 05/18/20 08:44 11:00 11:50 Temperature 36.2 C L 37.2 C Heart Rate 73 77 67 Respiratory 16 24 18 Rate Blood Pressure 140/66 H 138/70 H 135/64 H O2 Saturation 98 100 99 Oxygen O2 Source Room air - Rads (name of study) Left foot Radiology: Prelim report reviewed (Impression: Mildly displaced transverse fracture at the base of the distal phalanx of the great toe, with mild comminution. There is an associated soft tissue injury.), EMP read indepedently, See rad report Procedures - Laceration (location) Left great toe Length in cm: 3 Wound type: Linear, Clean, Other (exposed bone) Neurovascular status: Sensory intact, Motor intact Anesthesia: OTH (Digital block with a 50-50 mix of 1% lidocaine and 0.5% bupivacaine) Wound Preparation: Hibiclens, Irrigated copiously NS, Wound explored, To the base Deep layer closure: Vicryl, size #-0 - enter number (4-0), # sutures - enter number (3), Other (Holding the nailbed to the toe) Skin layer closure: Nylon, Interrupted, Size #-0 - enter number (4-0) Other: Patient tolerated well, No complications, Neurovascular intact, Dressing applied, Tetanus UTD Complexity: Intermediate PD MEDICAL DECISION MAKING - ED course Complexity details: reviewed old records, reviewed results, re-evaluated patient, considered differential, d/w patient, d/w family ED course: 79-year-old male with a open left great toe fracture laceration has a laceration repaired after thorough cleaning he is given 1 g of Ancef IM we will place him on to some Keflex and he will need to have sutures removed in 7 to 10 days. He is placed into a post op shoe with metatarsal padding Departure - Departure Disposition: 01 Home, Self Care Clinical Impression: Fracture of great toe, left, open Qualifiers: Encounter type: initial encounter Phalanx: distal Fracture alignment: nondisplaced Qualified Code(s): S92.425B - Nondisplaced fracture of distal phalanx of left great toe, initial encounter for open fracture Toe laceration Qualifiers: Encounter type: initial encounter Toe: great toe Damage to nail status: with damage Foreign body presence: without foreign body Laterality: left Qualified Code(s): S91.212A - Laceration without foreign body of left great toe with damage to nail, initial encounter Condition: Stable Instructions: ED Laceration Foot, ED Fx Toe Open Follow-Up: [facility] [Provider Group] Prescriptions: Hydrocodone/Acetaminophen [Hydrocodone-Acetamin 5-325 mg] 1 - 2 each PO Q6H PRN #14 tablet PRN Reason: Pain Cephalexin [Keflex] 500 mg PO QID #20 capsule Comments: sutures will need to be removed in 7-10 days Discharge Date/Time: 05/18/20 12:00
[2020-05-18] MEDS ORDERED: ceFAZolin 1 GM VIAL IM STA (11:41)
[2020-05-18 11:51] VITALS: BP 135/64
== END 2020-05-18 12:00 | disposition home or self-care (01) ==
LOC: ED 08:27
DX: S92.425B Nondisplaced fracture of distal phalanx of left great toe, initial encounter for open fracture (principal); S91.212A Laceration without foreign body of left great toe with damage to nail, initial encounter; W01.198A Fall on same level from slipping, tripping and stumbling with subsequent striking against other object, initial encounter; Y93.E1 Activity, personal bathing and showering; Y92.002 Bathroom of unspecified non-institutional (private) residence as the place of occurrence of the external cause; I10 Essential (primary) hypertension; E10.9 Type 1 diabetes mellitus without complications; Z79.4 Long term (current) use of insulin; Z79.84 Long term (current) use of oral hypoglycemic drugs; Z79.82 Long term (current) use of aspirin
CPT/HCPCS: 12042; 73630; 96372; 99283; 99284; Q0162

== ENCOUNTER 2020-10-11 10:48 | Emergency (ER) | payer MEDICARE, OTHER ==
[2020-10-11 11:23] LABS: BASOPHILS % (AUTO) 0.4 %; EOSINOPHILS # (AUTO) 0.1 10^3/uL (0.0-0.7); EOSINOPHILS % (AUTO) 1.3 %; HGB - HEMOGLOBIN 17.3 g/dL (14.0-18.0); LYMPHOCYTES # (AUTO) 1.1 10^3/uL (1.5-3.5); LYMPHOCYTES % (AUTO) 23.2 %; MEAN CORPUSCULAR HEMOGLOBIN 30.4 pg (27.0-31.0); MEAN CORPUSCULAR HGB CONC 32.7 g/dL (32.0-36.0); MEAN PLATELET VOLUME 9.4 fL (7.4-11.4); MONOCYTES # (AUTO) 0.3 10^3/uL (0.0-1.0); MONOCYTES % (AUTO) 6.4 %; NEUTROPHILS # (AUTO) 3.1 10^3/uL (1.5-6.6); NEUTROPHILS % (AUTO) 68.5 %; PLT - PLATELET COUNT 236 10^3/uL (130-450); RED BLOOD COUNT 5.69 10^6/uL (4.70-6.10); RED CELL DISTRIBUTION WIDTH 13.2 % (12.0-15.0); WHITE BLOOD COUNT 4.5 x10^3/uL (4.8-10.8)
[2020-10-11 11:38] LABS: ALBUMIN 4.2 g/dL (3.2-5.5); ALBUMIN/GLOBULIN RATIO 1.2 (1.0-2.2); BILIRUBIN,TOTAL 0.8 mg/dL (0.2-1.0); CREATININE 1.4 mg/dL (0.6-1.2); TOTAL PROTEIN 7.7 g/dL (6.7-8.2)
--- NOTE | 2020-10-11 11:59 | ED Physician Documentation ---
PD HPI ABD PAIN - Stated complaint Stated Complaint: ABD PX - Chief complaint Chief Complaint: Abd Pain - History obtained from History obtained from: Patient - History of Present Illness Timing - onset: Yesterday Timing - duration: Days (2) Timing - details: Gradual onset Pain level max: 4 Pain level now: 4 Location: LLQ Associated symptoms: No: Fever, Nausea, Vomiting, Diarrhea, Constipation, Melena, Hematochezia Recently seen: Not recently seen - Additional information Additional information: 80-year-old male presents to the emergency department left lower quadrant abdominal pain. Ongoing for the past 2 days. Nothing makes it better. Worse with movement and palpation. No nausea or vomiting. No diarrhea or constipation. Nonradiating. Has not had similar symptoms in the past. Review of Systems Constitutional: denies: Fever, Chills GI: denies: Vomiting Skin: denies: Rash Musculoskeletal: denies: Neck pain, Back pain Neurologic: denies: Headache PD PAST MEDICAL HISTORY - Past Medical History Past Medical History: Yes Cardiovascular: Hypertension, High cholesterol Respiratory: None Neuro: None Endocrine/Autoimmune: Type 1 diabetes GI: None : None HEENT: None Psych: None Musculoskeletal: None Derm: None - Past Surgical History Past Surgical History: No General: Colonoscopy HEENT: Cataracts - Present Medications Home Medications: Ambulatory Orders Medication Instructions Recorded Confirmed Aspirin 81 mg PO DAILY 04/17/17 10/11/20 Losartan Potassium 25 mg PO DAILY 04/17/17 10/11/20 metFORMIN [Glucophage] 850 mg PO BID 04/17/17 10/11/20 Meclizine [Antivert] 25 mg PO Q6H PRN #20 tablet 05/31/17 10/11/20 Insulin Glargine [Lantus Solostar] 10 unit SUBQ DAILY #1 pen 11/19/19 10/11/20 Hydrocodone/Acetaminophen 1 - 2 each PO Q6H PRN #14 tablet 05/18/20 10/11/20 [Hydrocodone-Acetamin 5-325 mg] cephALEXin [Keflex] 500 mg PO QID #20 capsule 05/18/20 10/11/20 Amox/Clav 875/125 [Augmentin] 1 each PO Q8H #30 tablet 10/11/20 Atorvastatin [Lipitor] 1 tab PO DAILY 10/11/20 10/11/20 - Allergies Allergies/Adverse Reactions: Allergies Allergy/AdvReac Type Severity Reaction Status Date / Time lisinopril Allergy Edema Verified 10/11/20 10:53 - Social History Does the pt smoke?: No Smoking Status: Never smoker Does the pt drink ETOH?: No Does the pt have substance abuse?: No - Immunizations Immunizations are current?: Yes - POLST Patient has POLST: No PD ED PE NORMAL - Vitals Vital signs reviewed: Yes - General General: Alert and oriented X 3, No acute distress, Well developed/nourished - HEENT HEENT: Moist mucous membranes - Neck Neck: Supple, no meningeal sign - Cardiac Cardiac: RRR, Strong equal pulses - Respiratory Respiratory: No respiratory distress, Clear bilaterally - Abdomen Abdomen: Soft, Non distended, Other (Mild tenderness to palpation on the left side of the abdomen. no peritoneal signs) - Derm Derm: Warm and dry - Extremities Extremities: No edema - Neuro Neuro: Alert and oriented X 3 - Psych Psych: Normal mood, Normal affect Results - Vitals Vitals: Vital Signs - 24 hr 10/11/20 10/11/20 10:52 13:03 Temperature 36.4 C L Heart Rate 90 74 Respiratory 18 16 Rate Blood Pressure 163/68 H 146/81 H O2 Saturation 97 100 Oxygen O2 Source Room air - Labs Labs: Laboratory Tests 10/11/20 10/11/20 10/11/20 11:10 11:10 12:05 WBC 4.5 L RBC 5.69 Hgb 17.3 Hct 52.9 H MCV 93.0 MCH 30.4 MCHC 32.7 RDW 13.2 Plt Count 236 MPV 9.4 Neut # (Auto) 3.1 Lymph # (Auto) 1.1 L [place] # (Auto) 0.3 Eos # (Auto) 0.1 Baso # (Auto) 0.0 Absolute Nucleated RBC 0.00 Nucleated RBC % 0.0 Sodium 135 Potassium 4.0 Chloride 100 L Carbon Dioxide 25 Anion Gap 10.0 BUN 26 H Creatinine 1.4 H Estimated GFR (MDRD) 59 L Glucose 177 H Calcium 10.0 Total Bilirubin 0.8 AST 16 ALT 15 Alkaline Phosphatase 91 Total Protein 7.7 Albumin 4.2 Globulin 3.5 Albumin/Globulin Ratio 1.2 Lipase 59 H Urine Color YELLOW Urine Clarity CLEAR Urine pH 6.0 Ur Specific [place] 1.015 Urine Protein 100 H Urine Glucose (UA) >=1000 H Urine Ketones NEGATIVE Urine Occult Blood NEGATIVE Urine Nitrite NEGATIVE Urine Bilirubin NEGATIVE Urine Urobilinogen 0.2 (NORMAL) Ur Leukocyte Esterase NEGATIVE Urine RBC 0-5 Urine WBC 0-3 Ur Squamous Epith Cells NONE SEEN Urine Bacteria Rare Ur Microscopic Review INDICATED Urine Culture Comments NOT INDICATED - Rads (name of study) CT abd/pelvis Radiology: Prelim report reviewed, EMP read contemporaneously PD MEDICAL DECISION MAKING - ED course Complexity details: considered differential, d/w patient ED course: Patient with diverticulitis. Will place on Augmentin for home. Discussed risks and benefits of antibiotics versus waiting, patient elected antibiotics. Patient also informed of the need for follow-up for the sclerotic areas in the visualized thoracic and lumbar spine. Patient counseled regarding signs and symptoms for which I believe and urgent re-evaluation would be necessary. Patient with good understanding of and agreement to plan and is comfortable going home at this time This document was made in part using voice recognition software. While efforts are made to proofread this document, sound alike and grammatical errors may occur. IMPRESSION: 1. Finding is concerning for uncomplicated mild diverticulitis involving mid descending colon. No abscess collection. No free fluid or free air. 2. Normal appendix. No bowel obstruction. 3. Well-circumscribed hypodensity involving inferior right hepatic lobe may represent hepatic cyst. 4. No renal stone or hydronephrosis. Multiple left renal cysts. Diffuse bladder wall thickening which may be due to underdistention. This could also represent cystitis versus chronic urinary outlet obstruction. Enlarged prostate gland is noted with mass effect on fluoroscopy unit bladder. 5. Ill-defined sclerotic areas scattered in visualized thoracic and lumbar spine vertebral bodies and bony pelvis as above, bony metastatic disease cannot be excluded, clinical correlation is recommended. Departure - Departure Disposition: Home, Self Care Clinical Impression: Diverticulitis Condition: Good Instructions: ED Diverticulitis Follow-Up: your,doctor in 1 week [Other] Prescriptions: Amox/Clav 875/125 [Augmentin] 1 each PO Q8H #30 tablet Comments: You have diverticulitis. Take all antibiotics until gone. Return if you worsen. There are sclerotic areas in your thoracic and lumbar spine, unclear what these are, there is no other sign of cancer on your CT scan. These may need further imaging with your doctor. IMPRESSION: 1. Finding is concerning for uncomplicated mild diverticulitis involving mid descending colon. No abscess collection. No free fluid or free air. 2. Normal appendix. No bowel obstruction. 3. Well-circumscribed hypodensity involving inferior right hepatic lobe may represent hepatic cyst. 4. No renal stone or hydronephrosis. Multiple left renal cysts. Diffuse bladder wall thickening which may be due to underdistention. This could also represent cystitis versus chronic urinary outlet obstruction. Enlarged prostate gland is noted with mass effect on fluoroscopy unit bladder. 5. Ill-defined sclerotic areas scattered in visualized thoracic and lumbar spine vertebral bodies and bony pelvis as above, bony metastatic disease cannot be excluded, clinical correlation is recommended. Discharge Date/Time: 10/11/20 13:18
[2020-10-11] MEDS ORDERED: IOVERSOL 320 100 ML VIAL IVP ONE ×2 (12:03→13:18)
[2020-10-11 12:19] LABS: BILIRUBIN,URINE NEGATIVE (NEGATIVE); GLUCOSE, URINE (UA) >=1000 mg/dL (NEGATIVE); KETONES,URINE (UA) NEGATIVE (NEGATIVE); LEUKOCYTE ESTERASE, URINE NEGATIVE (NEGATIVE); NITRITE,URINE NEGATIVE (NEGATIVE); OCCULT BLOOD,URINE NEGATIVE (NEGATIVE); PROTEIN,URINE 100 mg/dL (NEGATIVE); UROBILINOGEN,URINE 0.2 (NORMAL) E.U./dL (NORMAL)
[2020-10-11 12:22] LABS: CLARITY,URINE CLEAR (CLEAR)
[2020-10-11 12:29] LABS: BACTERIA,URINE Rare /HPF (None Seen); RBC,URINE 0-5 /HPF (0-5); SQUAMOUS EPITHELIAL CELL,UR NONE SEEN (<= Few)
--- NOTE | 2020-10-11 12:42 | CT Report ---
PROCEDURE: Abdomen/Pelvis W INDICATIONS: LLQ abd pain, diverticulitis suspected CONTRAST: IV CONTRAST: Optiray 320 ml: 100 PO CONTRAST: *NO PO CONTRAST TECHNIQUE: After the administration of IV contrast, 5 mm thick sections acquired from the diaphragms to the symp hysis. 5 mm thick coronal and sagittal reformats were acquired. For radiation dose reduction, the f ollowing was used: automated exposure control, adjustment of mA and/or kV according to patient size. COMPARISON: None. FINDINGS: Image quality: Excellent. ABDOMEN: Lung bases: Right basilar atelectasis is seen. Heart size is normal. Solid organs: Liver and spleen are normal in size and enhancement. Well-circumscribed 2.3 x 1.8 cm hypodensity is noted involving most inferior portion of right hepatic lobe and may represent hepatic cyst. Gallbladder contains multiple small calcified stones in its dependent portion. No gallbladder w all thickening or fluid. Biliary system is non dilated. Pancreas enhances normally. No adrenal nod ules. Kidneys demonstrate normal size and enhancement, without hydronephrosis. Multiple left renal cortical cysts are seen measures up to 2 cm in size. Peritoneum and bowel: There is no bowel obstruction. No gastric or small bowel wall thickening. Appen asaf is visualized and is within normal limits. Mild pericolonic fat stranding involving mid to distal sigmoid colon in left side of abdomen is seen with very mild colonic wall thickening in this area co ncerning for uncomplicated diverticulitis. No abscess collection. No free fluid or free air. Nodes and vessels: No retroperitoneal or mesenteric adenopathy by size criteria. Aorta and inferior vena cava are normal in size. Miscellaneous: No ventral hernias. PELVIS: Genitourinary: Diffuse bladder wall thickening is noted, no discrete bladder wall mass. Enlarged pros pineda gland is seen with mass effect on floor of urinary bladder. Miscellaneous: No inguinal hernias or adenopathy. Bones: Ill-defined sclerotic areas are seen involving L3 and L4 vertebral bodies as well as visualize d portion of T7 vertebral body. Ill-defined sclerotic areas scattered throughout bony pelvis is also seen. No vertebral body compression fractures. Degenerative disc disease throughout lumbar spine is s een. IMPRESSION: 1. Finding is concerning for uncomplicated mild diverticulitis involving mid descending colon. No abs cess collection. No free fluid or free air. 2. Normal appendix. No bowel obstruction. 3. Well-circumscribed hypodensity involving inferior right hepatic lobe may represent hepatic cyst. 4. No renal stone or hydronephrosis. Multiple left renal cysts. Diffuse bladder wall thickening which may be due to underdistention. This could also represent cystitis versus chronic urinary outlet obst ruction. Enlarged prostate gland is noted with mass effect on fluoroscopy unit bladder. 5. Ill-defined sclerotic areas scattered in visualized thoracic and lumbar spine vertebral bodies and bony pelvis as above, bony metastatic disease cannot be excluded, clinical correlation is recommende d. Reviewed by: Gurmeet Rodgers MD on 10/11/2020 12:40 PM PST Approved by: Gurmeet Rodgers MD on 10/11/2020 12:40 PM PST Station ID: [id number]
[2020-10-11] MEDS ORDERED: AMOX/CLAV 875 MG/125 MG TABLET PO STA (12:48)
[2020-10-11 13:03] VITALS: BP 146/81
== END 2020-10-11 13:18 | disposition home or self-care (01) ==
LOC: ED 10:48
DX: K57.32 Diverticulitis of large intestine without perforation or abscess without bleeding (principal); I10 Essential (primary) hypertension; E10.9 Type 1 diabetes mellitus without complications; Z79.4 Long term (current) use of insulin
CPT/HCPCS: 36415; 74177; 80053; 81001; 83690; 85025; 99284; A9270; Q9967; 81003; 87086

== ENCOUNTER 2020-12-29 10:51 | Outpatient (CLI) | payer OTHER, MEDICARE ==
--- NOTE | 2020-12-29 16:27 | DEXA Report ---
PROCEDURE: Dexa Spine and/or Hip INDICATIONS: HYPERPARATHROIDISM TECHNIQUE: Dual energy x-ray absorptiometry (DXA) was performed on a Audio[employer]eta System. Regions measur ed are the AP Spine, femoral neck, and if needed forearm. COMPARISON: None. FINDINGS: Forearm included secondary to hyperparathyroidism. Lumbar Spine: Bone Mineral Density 1.653 g/cm/cm,T score 3.6, normal Left Hip: Bone Mineral Density 1.106 g/cm/cm,T score 0.0, normal Left Femoral Neck: Bone Mineral Density 0.977 g/cm/cm, T score -0.7, normal Left forearm: Bone Mineral Density 0.969 g/cm/cm, T score -0.2, normal (T score greater or equal to -1.0: NORMAL) (T score from -1.1 to -2.4: OSTEOPENIA) (T score less than or equal to -2.5 to: OSTEOPOROSIS) Impression: Normal bone mineral density. Patients with diagnosis of osteoporosis or osteopenia should have regular bone mineral density assess ment. For those eligible for Medicare, routine testing is allowed once every 2 years. Testing frequ ency can be increased for patients who have rapidly progressing disease or for those who are receivin g medical therapy to restore bone mass. Reviewed by: Yeimy Decker MD, PhD on 12/29/2020 4:26 PM PDT Approved by: Yeimy Decker MD, PhD on 12/29/2020 4:26 PM PDT Station ID: [id number]
== END 2020-12-29 10:52 | disposition home or self-care (01) ==
LOC: DI 10:51
DX: E21.0 Primary hyperparathyroidism (principal)

== ENCOUNTER 2023-01-20 08:31 | Inpatient (IN) | payer OTHER ==
[2023-01-20] MEDS ORDERED: iohexoL-300 100 ML VIAL ONE (09:08)
[2023-01-20 09:12] LABS: BASOPHILS % (AUTO) 0.2 %; EOSINOPHILS # (AUTO) 0.1 10^3/uL (0.0-0.7); EOSINOPHILS % (AUTO) 1.6 %; HCT - HEMATOCRIT 46.8 % (42.0-52.0); LYMPHOCYTES # (AUTO) 0.7 10^3/uL (1.5-3.5); LYMPHOCYTES % (AUTO) 14.3 %; MEAN CORPUSCULAR HEMOGLOBIN 30.4 pg (27.0-31.0); MEAN CORPUSCULAR HGB CONC 32.1 g/dL (32.0-36.0); MEAN CORPUSCULAR VOLUME 94.7 fL (80.0-94.0); MEAN PLATELET VOLUME 8.9 fL (7.4-11.4); MONOCYTES # (AUTO) 0.3 10^3/uL (0.0-1.0); MONOCYTES % (AUTO) 6.1 %; NEUTROPHILS # (AUTO) 3.8 10^3/uL (1.5-6.6); NEUTROPHILS % (AUTO) 77.4 %; PLT - PLATELET COUNT 291 10^3/uL (130-450); RED BLOOD COUNT 4.94 10^6/uL (4.70-6.10); RED CELL DISTRIBUTION WIDTH 13.2 % (12.0-15.0); WHITE BLOOD COUNT 4.9 x10^3/uL (4.8-10.8)
--- NOTE | 2023-01-20 09:24 | ED Physician Documentation ---
PD HPI ABD PAIN - Stated complaint Stated Complaint: ABD PX/VOMIT - Chief complaint Chief Complaint: Abd Pain - History obtained from History obtained from: Patient - Additional information Additional information: Patient is an 82-year-old male presenting for evaluation of mid abdominal pain that is been present since yesterday. Patient states that he ate a chocolate muffin in the afternoon and shortly thereafter developed nausea and vomiting and had several episodes of emesis. He also developed abdominal pain that he describes as a squeezing sensation. He had difficulty sleeping overnight due to the pain. The pain has lessened but is still present today. He called the [place] nurse advice line and they recommended he come to the emergency department for evaluation. He no longer has nausea or vomiting. He was able to take a few bites of a pear and some water this morning without difficulty. He denies blood in emesis or stools. His last bowel movement was last night. He denies a histo ry of prior abdominal surgeries. He denies chest pain or back pain. He denies dysuria or hematuria. He does not take a blood thinner.Patient denies drug or alcohol use. Review of Systems Constitutional: denies: Fever Cardiac: denies: Chest pain / pressure Respiratory: denies: Dyspnea GI: reports: Abdominal Pain, Nausea, Vomiting. denies: Diarrhea, Bloody / black stool : denies: Dysuria Musculoskeletal: denies: Back pain Neurologic: denies: Headache PD PAST MEDICAL HISTORY - Past Medical History Cardiovascular: Hypertension, High cholesterol Respiratory: None Neuro: None Endocrine/Autoimmune: Type 1 diabetes GI: None : None HEENT: None Psych: None Musculoskeletal: None Derm: None - Past Surgical History Past Surgical History: No General: Colonoscopy HEENT: Cataracts - Present Medications Home Medications: Ambulatory Orders Medication Instructions Recorded Confirmed Atorvastatin [Lipitor] 20 mg PO DAILY 10/11/20 01/20/23 Cholecalciferol [Vitamin D3] 400 unit PO MOTH 01/20/23 01/20/23 Losartan Potassium [Cozaar] 100 mg PO DAILY 01/20/23 01/20/23 Metformin HCl [Metformin ER 500 mg PO DAILY 01/20/23 01/20/23 Gastric] Semaglutide [Wegovy] 0.5 mg SQ FR 01/20/23 01/20/23 amLODIPine [Norvasc] 5 mg PO DAILY 01/20/23 01/20/23 - Allergies Allergies/Adverse Reactions: Allergies Allergy/AdvReac Type Severity Reaction Status Date / Time lisinopril Allergy Edema Verified 01/20/23 08:47 - Social History Does the pt smoke?: No Smoking Status: Never smoker Does the pt drink ETOH?: No Does the pt have substance abuse?: No - Immunizations Immunizations are current?: Yes - POLST Patient has POLST: No PD ED PE NORMAL - General General: Alert and oriented X 3, No acute distress, Well developed/nourished - HEENT HEENT: Atraumatic - Neck Neck: Supple, no meningeal sign - Cardiac Cardiac: RRR, No murmur - Respiratory Respiratory: No respiratory distress, Clear bilaterally - Abdomen Abdomen: Normal bowel sounds, Soft, Non distended, Other (Periumbilical and RUQ>RLQ tenderness, no rebound, no guarding, no masses) - Derm Derm: Warm and dry - Neuro Neuro: Normal speech Results - Vitals Vitals: Vital Signs - 24 hr 01/20/23 01/20/23 01/20/23 08:43 08:58 11:32 Temperature 36.9 C Heart Rate 84 84 78 Respiratory 16 20 18 Rate Blood Pressure 135/74 H 135/73 H 131/65 H O2 Saturation 97 100 100 01/20/23 13:07 Temperature Heart Rate 76 Respiratory 18 Rate Blood Pressure 128/81 H O2 Saturation 100 Oxygen O2 Source Room air - Labs Labs: Laboratory Tests 01/20/23 01/20/23 09:07 09:07 WBC 4.9 RBC 4.94 Hgb 15.0 Hct 46.8 MCV 94.7 H MCH 30.4 MCHC 32.1 RDW 13.2 Plt Count 291 MPV 8.9 Neut # (Auto) 3.8 Lymph # (Auto) 0.7 L [place] # (Auto) 0.3 Eos # (Auto) 0.1 Baso # (Auto) 0.0 Absolute Nucleated RBC 0.00 Nucleated RBC % 0.0 Sodium 141 Potassium 4.0 Chloride 104 Carbon Dioxide 27 Anion Gap 10.0 BUN 19 Creatinine 1.1 Estimated GFR (MDRD) 78 L Glucose 94 Calcium 9.8 Total Bilirubin 1.2 H AST 198 H ALT 252 H Alkaline Phosphatase 112 Total Protein 7.0 Albumin 4.1 Globulin 2.9 Albumin/Globulin Ratio 1.4 Lipase 1092 H PD Medical Decision Making - ED course Complexity details: reviewed results, re-evaluated patient, d/w patient ED course: 1248 - D/W Dr. Cheung (General surgery). He will Consult on the patient. Recommends treatment of the pancreatitis and would plan on removing his gallbladder after this hospitalization in approximately 2 to 6 weeks.He does not feel strongly that the patient needs antibiotics at this time. 1240 - Discussed with Dr. Santos (hospitalist). She will admit the patient. Patient is an 82-year-old male presenting for evaluation of upper abdominal pain and vomiting since yesterday. His vital signs are stable.Patient does have ab dominal tenderness but declines need for any pain medications.His labs are reviewed and significant for elevated AST and ALT, T. bili of 1.2, lipase of 5000. CT scan was obtained and reviewed demonstrating gallstones and gallbladder wall thickening. Therefore an ultrasound was also obtained with dilated common bile duct and presence of gallstones with gallbladder wall thickening. I reviewed these results with on-call surgery. Patient will be admitted for pancreatitis. Plan for cholecystectomy as an outpatient and subsequent weeks once his pancreatitis has been treated. Patient to be admitted to the hospitalist service for further management.She is afebrile with normal white count. Does not appear septic. Departure - Departure Disposition: [facility] DC/Elsa Clinical Impression: Pancreatitis, Cholelithiasis Discharge Date/Time: 01/20/23 14:02
[2023-01-20 10:20] LABS: ALBUMIN 4.1 g/dL (3.2-5.5); ALBUMIN/GLOBULIN RATIO 1.4 (1.0-2.2); BILIRUBIN,TOTAL 1.2 mg/dL (0.2-1.0); CALCIUM 9.8 mg/dL (8.5-10.3); CREATININE 1.1 mg/dL (0.6-1.2)
[2023-01-20] MEDS ORDERED: iohexoL-300 100 ML VIAL IVP ONE (10:49)
--- NOTE | 2023-01-20 11:03 | CT Report ---
PROCEDURE: ABDOMEN/PELVIS W INDICATIONS: periumbilical/RLQ pain CONTRAST: 100ml omni 300 TECHNIQUE: After the administration of IV contrast, 5 mm thick sections acquired from the diaphragms to the symp hysis. 5 mm thick coronal and sagittal reformats were acquired. For radiation dose reduction, the f ollowing was used: automated exposure control, adjustment of mA and/or kV according to patient size. COMPARISON: 10/11/2020 FINDINGS: Image quality: Excellent. Lung bases and heart: There is a small right-sided pleural effusion. Mild atelectasis can be seen at both lung bases. Liver: No solid mass. Gallbladder and biliary tree: A gallstone is seen within the gallbladder. Gallbladder wall thickening is seen. Spleen: No splenomegaly. Pancreas: No pancreatic ductal dilation. Adrenals: No adrenal nodule. Kidneys and ureters: No hydronephrosis. No renal cystic lesion which requires follow up. No solid mas s. Bowel and peritoneum: In this patient with this given history, scrutiny is given to the appendix. The appendix demonstrates normal caliber, without associated inflammatory change. No right lower quadran t inflammatory changes are seen. No dilated loops of small bowel are seen. There is mild wall thickening seen involving the proximal s mall bowel. No significant colonic abnormality is seen. Minimal distal colonic diverticulosis is seen, without fi ndings of active diverticulitis. Lymph nodes: No central or retroperitoneal adenopathy. Vessels: No infrarenal aortic aneurysm. Atherosclerotic calcification is seen. PELVIS Reproductive organs: The prostate is enlarged, measuring 7.7 cm transversely. Bladder: Unremarkable. Lymph nodes: Unremarkable. Bones: Multiple sclerotic bony foci can be seen, which are similar to the prior examination. Age-appr opriate degenerative changes are seen. Other: Mild bilateral fat-containing inguinal hernias are seen. Generally soft tissue edema can be se en within the subcutaneous fat of the pelvis. IMPRESSION: Normal appendix. A gallstone is seen and there is gallbladder wall thickening. If clinically appropriate, please consi chelsey a follow up dedicated right upper quadrant ultrasound for further evaluation. Mild wall thickening can be seen involving the proximal small bowel. Please consider enteritis. Multiple sclerotic bony foci are seen, which are similar to the prior CT. Bony metastatic disease is present. Generalized soft tissue edema can be seen involving the subcutaneous fat of the pelvis. Additional findings: Enlarged prostate Diverticulosis, without findings of active diverticulitis. Bilateral fat-containing inguinal hernias Reviewed by: Pérez Gu MD on 01/20/2023 10:01 AM SAMMY Approved by: Pérez Gu MD on 01/20/2023 10:01 AM SAMMY Station ID: [id number]
--- NOTE | 2023-01-20 12:18 | Ultrasound Report ---
PROCEDURE: Abdomen Limited INDICATIONS: RUQ TTP TECHNIQUE: Real-time focused scanning was performed of the abdomen, with image documentation. COMPARISONS: Correlation is made with the accompanying CT, 01/20/2023. FINDINGS: Liver: The liver demonstrates mildly enlarged size. The liver demonstrates moderately increased ech ogenicity, which limits ultrasound sensitivity for detection of masses. Within the right liver, there is a 3.4 center simple cyst seen. The main portal vein demonstrates normal size and hepatopedal flow . Gallbladder: Gallstones are seen. The gallbladder wall is thickened up to 4 mm. There is no specific pericholecystic fluid. The sonographic Irby's sign is negative. Biliary ducts: The common bile duct is dilated to 11 mm. No intrahepatic biliary ductal dilatation is seen. Normal is 6-7 mm or less in diameter, or 10 mm or less post-cholecystectomy. Pancreas: The pancreatic duct visible, measuring up to 3 mm, which is at the upper limits of normal. Right kidney: Normal in size and echotexture. Right kidney measures 11 cm long. No hydronephrosis or nephrolithiasis. No solid masses. No complex renal cystic lesions which require follow-up. A 1 cm r ight renal cyst is seen. Aorta: Visualized aorta is normal in caliber at less than 3 cm. IVC: Intrahepatic inferior vena cava is patent. Miscellaneous: No free abdominal fluid. Overall imaging quality is limited by bowel gas. IMPRESSION: Gallstones and a thickened gallbladder wall can be seen. These imaging findings are worrisome for acu te cholecystitis. However, no additional findings of cholecystitis are seen. Mild biliary dilatation is seen. The pancreatic duct measures up to prominence of normal, 3 mm. Additional findings: 3.4 cm simple right liver cyst. 1 cm right renal cyst Note: Concordant preliminary findings given by the top screw upon the completion of the examination to Dr. Jarrett. Reviewed by: Pérez Gu MD on 01/20/2023 11:17 AM SAMMY Approved by: Pérez Gu MD on 01/20/2023 11:17 AM SAMMY Station ID: [id number]
[2023-01-20] MEDS ORDERED: SODIUM CHLORIDE FLUSH 0.9% 10 ML SYRINGE IVP PRN (13:17)
[2023-01-20] MEDS ORDERED: ONDANSETRON 4 MG/2 ML VIAL IVP PRN (13:17)
[2023-01-20] MEDS ORDERED: ACETAMINOPHEN 325 MG TABLET PO PRN (13:17)
[2023-01-20] MEDS ORDERED: HYDROmorphone 0.5 MG/0.5 ML SYRINGE IVP PRN (13:17)
--- NOTE | 2023-01-20 15:43 | PHARMACY PROGRESS NOTE ---
- Best Possible Medication History Admit Date and Time: 01/20/23 1318 Processed by: Pharmacy Medication History completed: Yes Patient Interview: Completed Secondary Source(s): Pharmacy records, Insurance records As the person ultimately responsible for medication therapy, providers are able to order a medication from an existing home medication list in [facility] via the "Reconcile Routine" prior to Confirmation of that medication by patient support partner. Such practice is discouraged except when the physician, in their clinical judgment, deems that a medical need exists for a medication without regard to previous use.
[2023-01-20] MEDS: D5NS W/20 MEQ KCL 1,000 ML IV SCH (15:45)
[2023-01-20] MEDS: INSULIN REGULAR HUMAN 300 UNIT/3 ML VIAL SUBQ SCH ×2 (15:46→17:42)
[2023-01-20] MEDS: SODIUM CHLORIDE FLUSH 0.9% 10 ML SYRINGE IVP SCH (16:01)
--- NOTE | 2023-01-20 16:04 | HISTORY & PHYSICAL EXAMINATION ---
Chief Complaint - Chief Complaint Chief Complaint: Abd pain today, N/V yesterday History of Present Illness - Admitted From Admitted From:: ED - History Obtained From History obtained from: ED provider and the patient - History of Present Illness HPI Comment/Other: This is an 82-year-old -[place]ian male with a history of diabetes mellitus, hypertension, who lives with his . He states that he developed nausea and vomiting yesterday after eating a chocolate muffin. He then developed abdominal pain that worsened through the night and made it hard to sleep. Because of the abdominal pain he came to the ER today. On exam he had minimal tenderness but Labs came back showing elevated lipase over thousand, mildly elevated AST and ALT and bilirubin of 1.2. CT abdomen pelvis show gallbladder wall is thickened with stones, no pancreatic duct dilatation and the re is no comment about any pancreatic appearance with any abnormality. Ultrasound of abdomen was then done that showed a dilated common bile duct with stones present and findings of cholecystitis. Patient has never had trouble with gallstones or gallbladder attack he told me. He denies a fever. The ED provider spoke to Dr. Cheung, General Surgeon, regarding management of the gallstones. Dr. Cheung deferred to the Hospitalist team, to admit him, manage the pancreatitis and said that the gallstones and gallbladder would be addressed in 2 to 6 weeks. The ED provider then spoke to me about this patient. He will be admitted for management of acute pancreatitis caused by gallstones and cholecystitis. History - Past Medical History Cardiovascular: reports: Hypertension, High cholesterol Respiratory: reports: None Neuro: reports: None Endocrine/Autoimmune: reports: Type 2 diabetes GI: reports: None : reports: None HEENT: reports: None Psych: reports: None Musculoskeletal: reports: None Derm: reports: None MRSA Hx?: No - Past Surgical History General: reports: Colonoscopy HEENT: reports: Cataracts - Family & Social History Family History: Mother: (Mom of old age at 99, father of prostate CA at 88), Father: , Sister: Cancer, Brother: Alive and Well Living arrangement: At home Living Situation: With spouse/s.o. 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 He drinks no alcohol. - Substance History Use: Uses substance without health or social issues: NONE - POLST Patient has POLST: No Meds/Allgy - Home Medications Home Medications: Ambulatory Orders Medication Instructions Recorded Confirmed Atorvastatin [Lipitor] 20 mg PO DAILY 10/11/20 01/20/23 Cholecalciferol [Vitamin D3] 400 unit PO MOTH 01/20/23 01/20/23 Losartan Potassium [Cozaar] 100 mg PO DAILY 01/20/23 01/20/23 Metformin HCl [Metformin ER 500 mg PO DAILY 01/20/23 01/20/23 Gastric] Semaglutide [Wegovy] 0.5 mg SQ FR 01/20/23 01/20/23 amLODIPine [Norvasc] 5 mg PO DAILY 01/20/23 01/20/23 - Allergies Allergies/Adverse Reactions: Allergies Allergy/AdvReac Type Severity Reaction Status Date / Time lisinopril Allergy Edema Verified 01/20/23 08:47 Review of Systems - Gastrointestinal Gastrointestinal: reports: Abdominal pain, Nausea, Vomiting - All Other Systems All Other Systems: reports: Reviewed and negative Exam - Vital Signs Reviewed Vital Signs: Yes Vital Signs: Vital Signs x48h Temp Pulse Pulse Resp BP BP Pulse Ox 01/20/23 15:54 36.9 C 77 20 134/50 H 99 01/20/23 14:14 36.9 C 80 16 130/55 L 100 01/20/23 13:07 76 18 128/81 H 100 01/20/23 11:32 78 18 131/65 H 100 01/20/23 08:58 84 20 135/73 H 100 01/20/23 08:43 36.9 C 84 16 135/74 H 97 - Physical Exam General Appearance: positive: No acute distress, Other (Tall, thin, elderly black male, appears younger than his age) Eyes Bilateral: positive: Normal inspection, EOMI ENT: positive: ENT inspection nml, No signs of dehydration Neck: positive: Nml inspection, No JVD Respiratory: positive: No respiratory distress, Breath sounds nml Cardiovascular: positive: Regular rate & rhythm, No murmur Abdomen: positive: Non-tender, Nml bowel sounds, No distention Skin: positive: Warm, Dry Extremities: positive: Non-tender, No pedal edema Neurologic/Psychiatric: positive: Oriented x3, Motor nml Conclusion/Plan - Problem List (1) Pancreatitis due to common bile duct stone Conclusion/Plan: Patient presents with upper abdominal pain, right upper quadrant worse than left upper quadrant and nausea and vomiting CT imaging shows pancreatitis caused by gallstone and cholecystitis Lipase level is over thousand Plan: Order bowel rest, n.p.o. except ice chips and meds Give IV fluids while NPO We will advance diet to clear liquids soon, especially if his pain and nausea are minimal Give antiemetics if needed and IV narcotics if needed Follow Lipase level daily (2) Gallbladder calculus with acute cholecystitis and obstruction Conclusion/Plan: In this patient, who denies any alcohol use whatsoever, the finding on CT explains the cause for the pancreatitis Plan: General surgery consult requested. The ED provider already talked to the general surgeon who stated that surgical management of the gallbladder and gallstone would be in the future, after his pancreas cools down. No empiric antibiotics are needed with a normal WBC and no fever Treat with bowel rest, as in #1 (3) DM type 2 (diabetes mellitus, type 2) Conclusion/Plan: The patient has been on and off insulin many times over his lifetime. Most recently he is not on insulin and he says that his A1c was 4.9 when checked about a week ago Plan: While he is n.p.o., will give D5 in his IV fluids Fingerstick checks will be done every 6 hours, sliding scale insulin coverage will be used here If his A1c is indeed 4.9, this is too strict of a glucose control, which I explained to the patient. He said that [facility] is [facility] on this [facility] result, and is to call him to discuss what diabetic meds to decrease. - Lab Results Fish Bones: 01/20/23 09:07 01/20/23 09:07 - Diagnostic Imaging Results Diagnostic Imaging Results: positive: Final report reviewed - Other Other Results/Comments: Attestation: The patient is expected to be discharged or transferred to another facility within 96 hours: Yes.
--- NOTE | 2023-01-20 16:38 | CONSULTATION NOTE ---
Referring Provider Consult Date: 01/20/23 Chief Complaint - Chief Complaint Chief Complaint: abdominal pain and n/v yesterday History of Present Illness - History Obtained From Records Reviewed: yes History obtained from: pt Exam Limitations: none - History of Present Illness HPI Comment/Other: he describes typically having a very healthy diet and being healthy and active. yesterday he had a chocolate muffin and developed mid abdominal pain and multiple bouts of vomiting. he still had pain and nausea this am and came to the ED. work up gallstone pancreatitis by labs and imaging. edema around the tail of the pancreas. gallbladder sludge and few 4 mm stones. in my opinion no cholecystitis. he denies having prior symptoms of biliary cholic. his diabetes is very well controlled. no longer takes insulin. history bone lesions for over 10 years without problem he denies heart and lung disease. . History - Past Medical History Cardiovascular: reports: Hypertension, High cholesterol Respiratory: reports: None Neuro: reports: None Endocrine/Autoimmune: reports: Type 2 diabetes GI: reports: None : reports: None HEENT: reports: None Psych: reports: None Musculoskeletal: reports: None Derm: reports: None MRSA Hx?: No - Past Surgical History General: reports: Colonoscopy HEENT: reports: Cataracts - Family & Social History Family History: Mother: (Mom of old age at 99, father of prostate CA at 88), Father: , Sister: Cancer, Brother: Alive and Well Living arrangement: At home Living Situation: With spouse/s.o. 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 He drinks no alcohol. - Substance History Use: Uses substance without health or social issues: NONE - POLST Patient has POLST: No Meds/Allgy - Home Medications Home Medications: Ambulatory Orders Medication Instructions Recorded Confirmed Atorvastatin [Lipitor] 20 mg PO DAILY 10/11/20 01/20/23 Cholecalciferol [Vitamin D3] 400 unit PO MOTH 01/20/23 01/20/23 Losartan Potassium [Cozaar] 100 mg PO DAILY 01/20/23 01/20/23 Metformin HCl [Metformin ER 500 mg PO DAILY 01/20/23 01/20/23 Gastric] Semaglutide [Wegovy] 0.5 mg SQ FR 04/30/23 04/30/23 amLODIPine [Norvasc] 5 mg PO DAILY 01/20/23 01/20/23 - Allergies Allergies/Adverse Reactions: Allergies Allergy/AdvReac Type Severity Reaction Status Date / Time lisinopril Allergy Edema Verified 01/20/23 08:47 Review of Systems - Other Findings Other Findings: 10 pt ros as above otherwise unremarkable Exam - Vital Signs Reviewed Vital Signs: Yes Vital Signs: Vital Signs x48h Temp Pulse Pulse Resp BP BP Pulse Ox 01/20/23 15:54 36.9 C 77 20 134/50 H 99 01/20/23 14:14 36.9 C 80 16 130/55 L 100 01/20/23 13:07 76 18 128/81 H 100 01/20/23 11:32 78 18 131/65 H 100 01/20/23 08:58 84 20 135/73 H 100 01/20/23 08:43 36.9 C 84 16 135/74 H 97 - Physical Exam General Appearance: positive: No acute distress, Alert Eyes Bilateral: positive: PERRL, EOMI ENT: positive: No signs of dehydration Neck: positive: No JVD, Trachea midline Respiratory: positive: No respiratory distress Abdomen: positive: Other (minimal distension and tenderness) Neurologic/Psychiatric: positive: Oriented x3 Conclusion/Plan - Problem List (1) Pancreatitis due to common bile duct stone Conclusion/Plan: he is already improving. likely passed small stones/ sludge. we discussed npo until nausea resolved and pain nearly resolved and then clears for a day or two. he is much improved since this am. we also discussed low fat diet until after gallbladder surgery. recommend gallbladder surgery within 6 to 8 weeks to prevent another episode of gallstone pancreatitis. surgery briefly discussed. [facility]. He already has an appointment with his primary care provider. I have asked him to get a referral to surgery, either myself or surgeon at another facility. - Lab Results Fish Bones: 01/20/23 09:07 01/20/23 09:07 - Diagnostic Imaging Results Diagnostic Imaging Results: positive: Read independently (mild pancreatis with edema around the tail of the pancreas and only mild gallbladder thickening. few small stones and sludge present. no acute cholecystitis. bone lesions have been present for over 10 years and not a problem per pt.)
[2023-01-20] MEDS: FAMOTIDINE 20 MG/2 ML VIAL IVP SCH (20:22)
[2023-01-21] MEDS: D5NS W/20 MEQ KCL 1,000 ML IV SCH ×2 (00:01→10:22)
[2023-01-21] MEDS: SODIUM CHLORIDE FLUSH 0.9% 10 ML SYRINGE IVP SCH ×4 (00:22→21:22)
[2023-01-21] MEDS: INSULIN REGULAR HUMAN 300 UNIT/3 ML VIAL SUBQ SCH ×3 (00:45→11:56)
[2023-01-21 05:44] LABS: BASOPHILS % (AUTO) 0.5 %; EOSINOPHILS # (AUTO) 0.2 10^3/uL (0.0-0.7); EOSINOPHILS % (AUTO) 3.8 %; HCT - HEMATOCRIT 43.8 % (42.0-52.0); HGB - HEMOGLOBIN 13.8 g/dL (14.0-18.0); LYMPHOCYTES # (AUTO) 0.6 10^3/uL (1.5-3.5); LYMPHOCYTES % (AUTO) 15.2 %; MEAN CORPUSCULAR HEMOGLOBIN 30.3 pg (27.0-31.0); MEAN CORPUSCULAR HGB CONC 31.5 g/dL (32.0-36.0); MEAN CORPUSCULAR VOLUME 96.3 fL (80.0-94.0); MEAN PLATELET VOLUME 8.7 fL (7.4-11.4); MONOCYTES # (AUTO) 0.4 10^3/uL (0.0-1.0); MONOCYTES % (AUTO) 9.1 %; NEUTROPHILS # (AUTO) 2.8 10^3/uL (1.5-6.6); NEUTROPHILS % (AUTO) 71.4 %; PLT - PLATELET COUNT 270 10^3/uL (130-450); RED BLOOD COUNT 4.55 10^6/uL (4.70-6.10); RED CELL DISTRIBUTION WIDTH 13.3 % (12.0-15.0); WHITE BLOOD COUNT 3.9 x10^3/uL (4.8-10.8)
[2023-01-21 06:07] LABS: ALBUMIN 3.3 g/dL (3.2-5.5); ALBUMIN/GLOBULIN RATIO 1.2 (1.0-2.2); BILIRUBIN,TOTAL 0.9 mg/dL (0.2-1.0); CALCIUM 9.2 mg/dL (8.5-10.3); CREATININE 1.1 mg/dL (0.6-1.2)
[2023-01-21] MEDS: FAMOTIDINE 20 MG/2 ML VIAL IVP SCH ×2 (09:30→21:13)
--- NOTE | 2023-01-21 09:48 | PROVIDER PROGRESS NOTE ---
Subjective - Subjective Pt reports feeling: Improved (denies nausea or pain. much improved. loose stool this am) Objective - Vital Signs/Intake & Output Reviewed Vital Signs: Yes Vital Signs: Vital Signs x48h Temp Pulse Resp BP Pulse Ox 01/21/23 08:00 37.0 C 78 20 129/59 L 100 01/21/23 05:15 36.9 C 81 18 122/55 L 98 Intake & Output: Intake & Output 01/18/23 01/19/23 01/20/23 01/21/23 23:59 23:59 23:59 23:59 Intake Total 1306.667 Output Total 375 400 Balance -375 906.667 - Objective General Appearance: positive: No acute distress, Alert Respiratory: positive: No respiratory distress Abdomen: positive: Non-tender, No distention Neurologic/Psychiatric: positive: Oriented x3 - Lab Results Fish Bones: 01/21/23 05:22 01/21/23 05:22 Other Labs: Lab Results x24hrs 01/21/23 01/21/23 01/21/23 Range/Units 05:22 05:22 00:30 WBC 3.9 L (4.8-10.8) x10^3/uL RBC 4.55 L (4.70-6.10) 10^6/uL Hgb 13.8 L (14.0-18.0) g/dL Hct 43.8 (42.0-52.0) % MCV 96.3 H (80.0-94.0) fL MCH 30.3 (27.0-31.0) pg MCHC 31.5 L (32.0-36.0) g/dL RDW 13.3 (12.0-15.0) % Plt Count 270 (130-450) 10^3/uL MPV 8.7 (7.4-11.4) fL Neut # (Auto) 2.8 (1.5-6.6) 10^3/uL Lymph # (Auto) 0.6 L (1.5-3.5) 10^3/uL [place] # (Auto) 0.4 (0.0-1.0) 10^3/uL Eos # (Auto) 0.2 (0.0-0.7) 10^3/uL Baso # (Auto) 0.0 (0.0-0.1) 10^3/uL Absolute Nucleated RBC 0.00 x10^3/uL Nucleated RBC % 0.0 /100WBC Sodium 138 (135-145) mmol/L Potassium 4.0 (3.5-5.0) mmol/L Chloride 111 (101-111) mmol/L Carbon Dioxide 26 (21-32) mmol/L Anion Gap 1.0 L (6-13) BUN 15 (6-20) mg/dL Creatinine 1.1 (0.6-1.2) mg/dL Estimated GFR (MDRD) 78 L (>89) Glucose 109 H (70-100) mg/dL POC Whole Bld Glucose 96 (70 - 100) mg/dL Calcium 9.2 (8.5-10.3) mg/dL Magnesium 2.0 (1.7-2.8) mg/dL Total Bilirubin 0.9 (0.2-1.0) mg/dL AST 62 H (10-42) IU/L ALT 129 H (10-60) IU/L Alkaline Phosphatase 98 (42-121) IU/L Total Protein 6.0 L (6.7-8.2) g/dL Albumin 3.3 (3.2-5.5) g/dL Globulin 2.7 (2.1-4.2) g/dL Albumin/Globulin Ratio 1.2 (1.0-2.2) Lipase 106 H (22-51) U/L 01/20/23 01/20/23 Range/Units 17:35 09:07 WBC (4.8-10.8) x10^3/uL RBC (4.70-6.10) 10^6/uL Hgb (14.0-18.0) g/dL Hct (42.0-52.0) % MCV (80.0-94.0) fL MCH (27.0-31.0) pg MCHC (32.0-36.0) g/dL RDW (12.0-15.0) % Plt Count (130-450) 10^3/uL MPV (7.4-11.4) fL Neut # (Auto) (1.5-6.6) 10^3/uL Lymph # (Auto) (1.5-3.5) 10^3/uL [place] # (Auto) (0.0-1.0) 10^3/uL Eos # (Auto) (0.0-0.7) 10^3/uL Baso # (Auto) (0.0-0.1) 10^3/uL Absolute Nucleated RBC x10^3/uL Nucleated RBC % /100WBC Sodium 141 (135-145) mmol/L Potassium 4.0 (3.5-5.0) mmol/L Chloride 104 (101-111) mmol/L Carbon Dioxide 27 (21-32) mmol/L Anion Gap 10.0 (6-13) BUN 19 (6-20) mg/dL Creatinine 1.1 (0.6-1.2) mg/dL Estimated GFR (MDRD) 78 L (>89) Glucose 94 (70-100) mg/dL POC Whole Bld Glucose 83 (70 - 100) mg/dL Calcium 9.8 (8.5-10.3) mg/dL Magnesium (1.7-2.8) mg/dL Total Bilirubin 1.2 H (0.2-1.0) mg/dL AST 198 H (10-42) IU/L ALT 252 H (10-60) IU/L Alkaline Phosphatase 112 (42-121) IU/L Total Protein 7.0 (6.7-8.2) g/dL Albumin 4.1 (3.2-5.5) g/dL Globulin 2.9 (2.1-4.2) g/dL Albumin/Globulin Ratio 1.4 (1.0-2.2) Lipase 1092 H (22-51) U/L Assessment/Plan - Problem List (1) Pancreatitis due to common bile duct stone Impression: clinically he has passed small gallstone material/ sludge and is much improved. we discussed clear liquid diet for another day or two and low fat diet until after gallbladder surgery. I believe he is ok for discharge today and ok for travel tomorrow to see family in [place]. his brother is ill. recommend follow up surgery when back from [place]. [facility] he will ask for a referral I would be happy to see him in follow up [phone]
[2023-01-21] MEDS ORDERED: GADOBUTROL 10 MMOL/10 ML VIAL ONE (11:11)
[2023-01-21 11:44] LABS: ESTIMATED AVERAGE GLUCOSE 100 mg/dL (70-100); HEMOGLOBIN A1c% 5.1 % (4.27-6.07)
--- NOTE | 2023-01-21 13:42 | MRI Report ---
PROCEDURE: MRCP W/WO INDICATIONS: cbd dilation, pancreatitis, gallstones CONTRAST: 100ml omni 300 TECHNIQUE: Coronal ultra fast SE through the abdomen, axial 2-D spoiled GE in- and [id number], and breath-hold T2 FSE with fat saturation through the biliary system and pancreas. Oblique coronal and axial thin- slice ultra fast SE, radial thick-slab ultra fast SE centered on the extrahepatic bile ducts. COMPARISON: CT abdomen and pelvis, 01/20/2023. Ultrasound abdomen, 01/20/2023 FINDINGS: Image quality: Excellent. Pancreas and biliary system: There are gallstones. No gallbladder wall thickening or pericholecystic fluid collection. Intra- biliary ducts are prominent in caliber. Common bile duct is mildly dilated measuring up to 9 mm. No definitive intraductal stones are identified. Pancreas is normal in morphology, without adjacent soft tissue edema. There is a 5 mm cyst in the pa ncreatic head. Pancreatic duct is normal in caliber, without developmental anomalies. Other solid organs: There is moderate hepatic steatosis. Liver and spleen are normal in size. No ad renal nodules. Both kidneys are normal in size, without hydronephrosis. There is a 1.1 cm enhancing nodule in the an terior cortex of the right kidney. This nodule demonstrates T2 hypointensity and T1 hyperintensity an d hypointense signal on fat suppression sequences, suggesting a renal angiomyolipoma. There are bilat eral renal cortical cysts. Nodes and vessels: No retroperitoneal or mesenteric adenopathy by size criteria. Aorta and inferior vena cava are normal in size. Bowel and peritoneum: Unenhanced bowel loops are normal in caliber. No free fluid. Lung bases: No basal pleural effusions. Heart size is normal. Bones and soft tissues: No ventral hernias. Bone marrow is of normal overall signal. IMPRESSION: 1. Cholelithiasis. No gallbladder wall thickening or pericholecystic fluid collection. If there is cl inical suspicion for acute cholecystitis, HIDA scan would be helpful. 2. Pancreas is normal in morphology sagittal peripancreatic stranding. Pancreas enhances normally. No findings to suggest pancreatic necrosis. 3.A 5 mm indeterminate cyst in the head of the pancreas. Differential diagnoses are benign cyst versu s intraductal papillary mucinous neoplasm (IPMN). Consider MRI for follow-up in 12 months. 4. Prominent common bile duct measuring up to 9 mm. No intraductal stones. Please correlate with seru m bilirubin for biliary obstruction. 5. Hepatic steatosis. 6. A 1.1 cm enhancing nodule in the anterior cortex of the right kidney. The nodule demonstrates T2 h ypointensity, T1 hyperintensity and low signal with fat suppression images, suggesting a small angiom yolipoma. Consider renal ultrasound for follow-up. Reviewed by: Nohemi Quezada MD on 01/21/2023 1:40 PM PDT Approved by: Nohemi Quezada MD on 01/21/2023 1:40 PM PDT Station ID: [id number]
[2023-01-21] MEDS ORDERED: GADOBUTROL 10 MMOL/10 ML VIAL IVP ONE (14:30)
[2023-01-21] MEDS: INSULIN LISPRO 300 UNIT/3 ML PEN SUBQ SCH ×2 (17:00→21:13)
--- NOTE | 2023-01-21 18:56 | PROVIDER PROGRESS NOTE ---
Subjective - Prog Note Date Prog Note Date: 01/21/23 Prog Note Time: 18:55 - Subjective Pt reports feeling: Improved Subjective: He said the pain really started with the muffin he ate yesterday. Had another bout of it last night. By this morning there is nothing. He has been eating a clear liquid diet. Tolerating it well. His labs have improved. He wants to eat a regular diet tonight because he has every intention of leaving tomorrow no matter what we say. Apparently he has to catch a flight to [place]. is at the bedside when he said all of this. And she had nothing to offer. The only question she had was what food to eat when he left, and what his limitations be when he has surgery. Current Medications - Current Medications Current Medications: Active Medications Acetaminophen (Acetaminophen 325 Mg Tablet) 650 mg PO Q4HR PRN PRN Reason: Pain 1 to 4, or Fever Famotidine (Famotidine 20 Mg/2 Ml Vial) 20 mg IVP BID [facility] Last Admin: 01/21/23 09:30 Dose: 20 mg Hydromorphone HCl (Hydromorphone 0.5 Mg/0.5 Ml Syringe) 0.5 mg IVP Q2H PRN PRN Reason: Pain 8 to 10 Potassium Chloride/Dextrose/Sod Cl (D5ns W/20 Meq Kcl) 1,000 mls @ 100 mls/hr IV .Q10H [facility] Last Admin: 01/21/23 10:22 Dose: 100 mls/hr Insulin Human Lispro (Insulin Lispro 300 Unit/3 Ml Pen) 1 - 5 unit SUBQ 0800,1200,1700,2100 [facility]; Protocol Last Admin: 01/21/23 17:00 Dose: Not Given Ondansetron HCl (Ondansetron 4 Mg/2 Ml Vial) 4 mg IVP Q6HR PRN PRN Reason: Nausea / Vomiting Sodium Chloride (Sodium Chloride Flush 0.9% 10 Ml Syringe) 10 ml IVP PRN PRN PRN Reason: NEEDED PER PROVIDER ORDERS Sodium Chloride (Sodium Chloride Flush 0.9% 10 Ml Syringe) 10 ml IVP 0100,0900,1700 [facility] Last Admin: 01/21/23 17:52 Dose: Not Given Atorvastatin [Lipitor] 20 mg PO DAILY 10/11/20 Cholecalciferol [Vitamin D3] 400 unit PO MOTH 01/20/23 Losartan Potassium [Cozaar] 100 mg PO DAILY 01/20/23 Metformin HCl [Metformin ER Gastric] 500 mg PO DAILY 01/20/23 Semaglutide [Wegovy] 0.5 mg SQ FR 01/20/23 amLODIPine [Norvasc] 5 mg PO DAILY 01/20/23 Objective - Vital Signs/Intake & Output Reviewed Vital Signs: Yes Vital Signs: Vital Signs x48h Temp Pulse Resp BP Pulse Ox 01/21/23 16:00 37.1 C 80 18 125/58 L 100 Intake & Output: Intake & Output 01/18/23 01/19/23 01/20/23 01/21/23 23:59 23:59 23:59 23:59 Intake Total 3086.667 Output Total 375 400 Balance -375 4386.667 - Objective General Appearance: positive: No acute distress, Alert, Other (Tall, booming voice black male, no acute distress.) Eyes Bilateral: positive: PERRL, EOMI ENT: positive: No signs of dehydration Neck: positive: No JVD. negative: Stiff neck Respiratory: positive: No respiratory distress. negative: Wheezes, Rales, Rhonchi Cardiovascular: positive: Regular rate & rhythm Abdomen: positive: Non-tender, No organomegaly, Nml bowel sounds, Other (Stomach is still slightly distended. But no tympanitic finding) Skin: positive: Warm, Dry Extremities: positive: Full ROM, No pedal edema Neurologic/Psychiatric: positive: Oriented x3, CN's nml (2-12), Motor nml - Lab Results Fish Bones: 01/21/23 05:22 01/21/23 05:22 Other Labs: Lab Results x24hrs 01/21/23 01/21/23 01/21/23 Range/Units 16:30 11:16 05:22 WBC (4.8-10.8) x10^3/uL RBC (4.70-6.10) 10^6/uL Hgb (14.0-18.0) g/dL Hct (42.0-52.0) % MCV (80.0-94.0) fL MCH (27.0-31.0) pg MCHC (32.0-36.0) g/dL RDW (12.0-15.0) % Plt Count (130-450) 10^3/uL MPV (7.4-11.4) fL Neut # (Auto) (1.5-6.6) 10^3/uL Lymph # (Auto) (1.5-3.5) 10^3/uL [place] # (Auto) (0.0-1.0) 10^3/uL Eos # (Auto) (0.0-0.7) 10^3/uL Baso # (Auto) (0.0-0.1) 10^3/uL Absolute Nucleated RBC x10^3/uL Nucleated RBC % /100WBC Sodium 138 (135-145) mmol/L Potassium 4.0 (3.5-5.0) mmol/L Chloride 111 (101-111) mmol/L Carbon Dioxide 26 (21-32) mmol/L Anion Gap 1.0 L (6-13) BUN 15 (6-20) mg/dL Creatinine 1.1 (0.6-1.2) mg/dL Estimated GFR (MDRD) 78 L (>89) Glucose 109 H (70-100) mg/dL POC Whole Bld Glucose 86 80 (70 - 100) mg/dL Estimat Average Glucose (70-100) mg/dL Hemoglobin A1c % (4.27-6.07) % Calcium 9.2 (8.5-10.3) mg/dL Magnesium 2.0 (1.7-2.8) mg/dL Total Bilirubin 0.9 (0.2-1.0) mg/dL AST 62 H (10-42) IU/L ALT 129 H (10-60) IU/L Alkaline Phosphatase 98 (42-121) IU/L Total Protein 6.0 L (6.7-8.2) g/dL Albumin 3.3 (3.2-5.5) g/dL Globulin 2.7 (2.1-4.2) g/dL Albumin/Globulin Ratio 1.2 (1.0-2.2) Lipase 106 H (22-51) U/L 01/21/23 01/21/23 01/21/23 Range/Units 05:22 05:22 00:30 WBC 3.9 L (4.8-10.8) x10^3/uL RBC 4.55 L (4.70-6.10) 10^6/uL Hgb 13.8 L (14.0-18.0) g/dL Hct 43.8 (42.0-52.0) % MCV 96.3 H (80.0-94.0) fL MCH 30.3 (27.0-31.0) pg MCHC 31.5 L (32.0-36.0) g/dL RDW 13.3 (12.0-15.0) % Plt Count 270 (130-450) 10^3/uL MPV 8.7 (7.4-11.4) fL Neut # (Auto) 2.8 (1.5-6.6) 10^3/uL Lymph # (Auto) 0.6 L (1.5-3.5) 10^3/uL [place] # (Auto) 0.4 (0.0-1.0) 10^3/uL Eos # (Auto) 0.2 (0.0-0.7) 10^3/uL Baso # (Auto) 0.0 (0.0-0.1) 10^3/uL Absolute Nucleated RBC 0.00 x10^3/uL Nucleated RBC % 0.0 /100WBC Sodium (135-145) mmol/L Potassium (3.5-5.0) mmol/L Chloride (101-111) mmol/L Carbon Dioxide (21-32) mmol/L Anion Gap (6-13) BUN (6-20) mg/dL Creatinine (0.6-1.2) mg/dL Estimated GFR (MDRD) (>89) Glucose (70-100) mg/dL POC Whole Bld Glucose 96 (70 - 100) mg/dL Estimat Average Glucose 100 (70-100) mg/dL Hemoglobin A1c % 5.1 (4.27-6.07) % Calcium (8.5-10.3) mg/dL Magnesium (1.7-2.8) mg/dL Total Bilirubin (0.2-1.0) mg/dL AST (10-42) IU/L ALT (10-60) IU/L Alkaline Phosphatase (42-121) IU/L Total Protein (6.7-8.2) g/dL Albumin (3.2-5.5) g/dL Globulin (2.1-4.2) g/dL Albumin/Globulin Ratio (1.0-2.2) Lipase (22-51) U/L ABX Reporting Has patient been on IV antibiotics over the past 48 hours?: No Assessment/Plan - Problem List (1) Pancreatitis due to common bile duct stone Impression: Patient presents with upper abdominal pain, right upper quadrant worse than left upper quadrant and nausea and vomiting CT imaging shows pancreatitis caused by gallstone and cholecystitis Lipase level is over thousand. On admission. He was 1092. Today he is 106. He has not had any fever. Blood pressure has been normal. White cell count started at 4.9 and came down to 3.9 today. As such, he appears to have improved without any intervention other than IV fluids and pain management. His lipase has come down to near normal, and there is no acute infectious signs. He was advanced to a clear liquid diet this morning. By this afternoon he was demanding to eat a regular diet for dinner. MRCP was ordered by me. I was a little concerned that we all have felt that he had common bile duct stones with a subsequent pancreatitis. But no objective imaging to make sure he did not have retained stones. The MRCP came back as no gallstones. No gallbladder wall thickening or pericholecystic fluid. Common bile duct was mildly dilated to 9 mm. No definitive intraductal stones identified. There was a 5 mm cyst in the pancreatic head. Moderate hepatic steatosis. 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 Plan: Continue Zofran 4 mg IV push every 6 hours as needed for nausea. He has not required any during the stay. Dilaudid 0.5 mg every 2 hours as needed for pain was also ordered. He has not required any of that while he has been here. No antibiotics since he does not have cholecystitis He [facility] I asked him to call [facility] and move that appointment up to the next 2 to 3 weeks. I would like him to get a laparoscopic cholecystectomy in the near future. I also explained to him what usually happens to people who get their gallbladder taken out and the dumping syndrome thereof. If he is without a fever tomorrow. Without pain tomorrow. Eating a regular diet. He can most likely be discharged. (2) Gallbladder calculus with acute cholecystitis and obstruction Conclusion/Plan: In this patient, who denies any alcohol use whatsoever, the finding on CT exp lains the cause for the pancreatitis Plan: General surgery consult states that the patient most likely does not have acute cholecystitis. Just cholelithiasis. As such he is not on antibiotics. He r ecommends surgery in the next month for this patient. (3) DM type 2 (diabetes mellitus, type 2) Conclusion/Plan: The patient has been on and off insulin many times over his lifetime. Most recently he is not on insulin and he says that his A1c was 4.9 when checked about a week ago. A1c is 5.1%. Glucose today has been 100, 80, and 86. He has not required any sliding scale insulin. Plan: His glucose was acceptable even on a D5 drip. I have advanced his diet to regular food tonight. Continue sliding scale insulin for a ffnou-sa-mcrm glucose checked before each meal.
[2023-01-22] MEDS: D5NS W/20 MEQ KCL 1,000 ML IV SCH (01:09)
[2023-01-22 05:32] LABS: ALBUMIN 3.2 g/dL (3.2-5.5); ALBUMIN/GLOBULIN RATIO 1.3 (1.0-2.2); BILIRUBIN,TOTAL 0.7 mg/dL (0.2-1.0); CALCIUM 9.1 mg/dL (8.5-10.3); CREATININE 1.1 mg/dL (0.6-1.2); POTASSIUM 3.9 mmol/L (3.5-5.0); TOTAL PROTEIN 5.7 g/dL (6.7-8.2)
[2023-01-22 07:46] VITALS: BP 133/56
[2023-01-22] MEDS: SODIUM CHLORIDE FLUSH 0.9% 10 ML SYRINGE IVP SCH (08:16)
[2023-01-22] MEDS: FAMOTIDINE 20 MG/2 ML VIAL IVP SCH (08:16)
[2023-01-22] MEDS: INSULIN LISPRO 300 UNIT/3 ML PEN SUBQ SCH (08:16)
--- NOTE | 2023-01-22 09:28 | Discharge Plan ---
Discharge Plan Problem Reviewed?: Yes Disposition: Home, Self Care Condition: Stable Diet: Soft (LOW FAT) Activity Restrictions: Activity as Tolerated Shower Restrictions: No Driving Restrictions: No Instruction Topics: Pancreatitis, ED Gallstone W Biliary Colic, Gallstones Health Concerns: You were hospitalized to manage your abdominal pain that was caused by gallstones and pancreatitis. You needed bowel rest, IV fluids and then when your diet was advanced it was tolerated, therefore you are being discharged home today. Please eat soft food that is low-fat. Remember that you need the gallstones and/or gallbladder removed in several weeks. In addition we found you to have 1 episode of very low blood sugar of 39 while you are here. Your A1c came back at 5.1. You mentioned that your last A1c was 4.9. These are too low for a diabetic, your sugars are lower than what is safe. As you are being discharged, please take a smaller dose of metformin and none of the Semaglutide. When you speak to your provider about adjusting your doses, please mention that you had a very low blood sugar while in the hospital of 39. You may resume all your other pre-hospital medications. Plan of Treatment: As above. Care Goals: Improvement in symptoms and stabilization of the goals. Assessment: The patient understands and is agreeable with the plan. Additional Instructions or Follow Up instructions: If you have new or worsening symptoms, call your primary care provider for advice, go to a walk-in clinic, or go to an ER. No Smoking: If you smoke, Please STOP! Call for help. Follow-up with: GRUPO LORD [Primary Care Provider] -
--- NOTE | 2023-01-22 14:57 | Ultrasound Report ---
PROCEDURE: Retroperitoneal Limited INDICATIONS: angiomyolipoma of kidney TECHNIQUE: Real-time scanning was performed of the retroperitoneal organs, with image documentation. COMPARISON: MRCP 01/21/2023 FINDINGS: Left kidney: Fluid attenuating cyst on the superior pole of the left kidney measuring 2.1 cm. The kid prince measures 10.8 cm, without cortical thinning. Bladder: Not evaluated. Miscellaneous: No free abdominal fluid. IMPRESSION: Left-sided renal cystic lesions. No definite solid mass. Reviewed by: Daniel Goldstein on 01/22/2023 2:55 PM PDT Approved by: Daniel Goldstein on 01/22/2023 2:55 PM PDT Station ID: [id number]
--- NOTE | 2023-01-23 07:39 | DISCHARGE SUMMARY ---
Discharge Summary Admit Date: 01/20/23 Discharge Date: 01/22/23 Discharging Provider: Dr Ro Santos Primary Care Provider: Dr Ny Medrano Condition at Discharge: Stable Discharge Disposition: 01 Home, Self Care - HPI History of Present Illness: This is an 82-year-old -Faroese male with a history of diabetes mellitus, hypertension, who lives with his . He states that he developed nausea and vomiting yesterday after eating a chocolate muffin. He then deve loped abdominal pain that worsened through the night and made it hard to sleep. Because of the abdominal pain he came to the ER today. On exam he had minimal tenderness but Labs came back showing elevated lipase over thousand, mildly elevated AST and ALT and bilirubin of 1.2. CT abdomen pelvis show gallbladder wall is thickened with stones, no pancreatic duct dilatation and there is no comment about any pancreatic appearance with any abnormality. Ultrasound of abdomen was then done that showed a dilated common bile duct with stones present and findings of cholecystitis. Patient has never had trouble with gallstones or gallbladder attack he told me. He denies a fever. The ED provider spoke to Dr. Cheung, General Surgeon, regarding management of the gallstones. Dr. Cheung deferred to the Hospitalist team, to admit him, manage the pancreatitis and said that the gallstones and gallbladder would be addressed in 2 to 6 weeks. The ED provider then spoke to me about this patient. He will be admitted for management of acute pancreatitis caused by gallstones and cholecystitis. - HOSPITAL COURSE Hospital Course: (1) Pancreatitis, acute (K85.90) Patient presented with upper abdominal pain, right upper quadrant worse than left upper quadrant and nausea and vomiting. CT imaging showed pancreatitis caused by gallstone. Lipase level was 1092. We ordered bowel rest, n.p.o. except ice chips and meds and gave IV fluids while NPO. His symptoms dissipated quickly and we hardly gave any narcotic pain meds or antiemetics. Lipase dropped to 106 by the following day. His diet was begun with clear liquids and was advanced quickly. He was advised to eat a low-fat diet. Lipase level at the time of discharge was 41. (2) Cholelithiasis (K80.20) An MRCP was done that showed gallstones, no gallbladder wall thickening or pericolecystic fluid collection and no adjacent soft tissue edema. General surgery consult was done who advised surgical management of the gallbladder and gallstone in the future. No empiric antibiotics were needed with a normal WBC and no fever. The general surgeon agreed that he could be discharged. 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 (4) DM type 2 (diabetes mellitus, type 2) The patient had been on and off insulin many times over his lifetime. Most recently he was not on insulin and reported that his last A1c was 4.9 from about a week ago. When his diet was advanced, he was put on a diabetic diet. We checked his A1c which came back at 5.1. I discussed with the patient that this is too tight of glucose control and that hypoglycemia can cause more problems than hyperglycemia. He said that [facility] was about to decrease one of his medications. I advised him to definitely report to his doctor, a low glucose he had here of 39 (he was not shaky or symptomatic with it however). (5) Hypoglycemia A fingerstick low glucose here of 39 (he was not shaky or symptomatic with it however). He was given orange juice and it improved. He was advised to definitely discuss this low glucose and his low A1c's, with his doctor, and to double check if he should even be taking the second oral diabetic medicine. (6) Nodule of kidney (N28.89) Radiology reading on the MRCP described it as a 1.1 cm enhancing nodule in the anterior cortex of the right kidney suggesting a small angiomyolipoma and renal ultrasound was advised. This needs to be arranged to be done as an outpatient. (7) HTN We had him on his usual blood pressure meds while here. - ALLERGIES Allergies/Adverse Reactions: Allergies Allergy/AdvReac Type Severity Reaction Status Date / Time lisinopril Allergy Edema Verified 01/20/23 08:47 - MEDICATIONS Home Medications: Ambulatory Orders Medication Instructions Recorded Confirmed Atorvastatin [Lipitor] 20 mg PO DAILY 10/11/20 01/20/23 Cholecalciferol [Vitamin D3] 400 unit PO MOTH 01/20/23 01/20/23 Losartan Potassium [Cozaar] 100 mg PO DAILY 04/30/23 04/30/23 Metformin HCl [Metformin ER 500 mg PO DAILY 01/20/23 01/20/23 Gastric] amLODIPine [Norvasc] 5 mg PO DAILY 01/20/23 01/20/23 - PHYSICAL EXAM AT DISCHARGE General Appearance: positive: No acute distress, Other (Very tall, elderly -Faroese male. He is in no distress) Eyes Bilateral: positive: Normal inspection, EOMI ENT: positive: ENT inspection nml, No signs of dehydration Neck: positive: Nml inspection, No JVD Respiratory: positive: No respiratory distress, Breath sounds nml Cardiovascular: positive: Regular rate & rhythm, No murmur Abdomen: positive: Non-tender, Nml bowel sounds, No distention Skin: positive: Warm, Dry Extremities: positive: Non-tender, No pedal edema Neurologic/Psychiatric: positive: Oriented x3, Motor nml - LABS Result Diagrams: 01/21/23 05:22 01/22/23 05:01 - DIAGNOSTIC IMAGING Diagnostic Imaging Results: Final report reviewed - FOLLOW UP Follow Up: The patient is taking a plane trip to [place] this evening, and is returning back in 1 to 2 weeks. He was advised to have a follow-up with his PCP soon after returning from [place], and to also be in contact soon with his doctor by phone, which is supposed to be today or tomorrow. - TIME SPENT Time Spent in Discharge (Minutes): 40
== END 2023-01-22 10:20 | disposition home or self-care (01) | DRG 439 ==
LOC: ED 08:31 → MS2 13:18
PROVIDERS: ADMIT Internal Medicine; ATTEND Internal Medicine
DX: K85.10 Biliary acute pancreatitis without necrosis or infection (principal); K80.63 Calculus of gallbladder and bile duct with acute cholecystitis with obstruction; K86.2 Cyst of pancreas; I10 Essential (primary) hypertension; E11.649 Type 2 diabetes mellitus with hypoglycemia without coma; N28.89 Other specified disorders of kidney and ureter; E78.00 Pure hypercholesterolemia, unspecified; R74.01 Elevation of levels of liver transaminase levels; R74.8 Abnormal levels of other serum enzymes; Z79.84 Long term (current) use of oral hypoglycemic drugs; Z79.899 Other long term (current) drug therapy; Z80.42 Family history of malignant neoplasm of prostate; Z80.9 Family history of malignant neoplasm, unspecified; Z88.8 Allergy status to other drugs, medicaments and biological substances
CPT/HCPCS: 36415; 74177; 74183; 76705; 76775; 80053; 83036; 83690; 83735; 85025; 99284; 99285; A9585; Q9967

== ENCOUNTER 2023-06-12 09:33 | Emergency (ER) | payer OTHER ==
[2023-06-12] MEDS: ACETAMINOPHEN 325 MG TABLET PO STA (10:09)
[2023-06-12] MEDS: oxyCODONE 5 MG TABLET PO STA (10:09)
[2023-06-12] MEDS: LIDOCAINE PATCH 5% TOP STA (10:09)
--- NOTE | 2023-06-12 11:09 | XRAY Report ---
PROCEDURE: Knee 3 View LT INDICATIONS: knee pain TECHNIQUE: 3 views of the left knee(s) were acquired. COMPARISON: None. FINDINGS: Bones: No fractures or dislocations. No suspicious bony lesions. Moderate tricompartmental knee ileana nt degeneration. Soft tissues: No knee joint effusion. No suspicious soft tissue calcifications or masses. IMPRESSION: 1. No acute bony abnormality. If clinical symptoms persist or there is clinical suspicion for interna l derangement,, consider advanced imaging such as CT or MRI. 2. Moderate osteoarthritis. Reviewed by: Nohemi Quezada MD on 06/12/2023 11:08 AM PDT Approved by: Nohemi Quezada MD on 06/12/2023 11:08 AM PDT Station ID: [id number]
--- NOTE | 2023-06-12 12:01 | ED Physician Documentation ---
PD HPI LOWER EXT INJURY - Stated complaint Stated Complaint: LT KNEE PX,SWELLING - Chief complaint Chief Complaint: Ext Problem - History obtained from History obtained from: Patient - Additional information Additional information: Patient is an 82-year-old male presenting for evaluation of left knee pain and swelling which is worsened this morning. Patient states that both knees were bothering him last night and he used compression sleeves as well as Tylenol. His right knee improved but this morning he noted that there was swelling of the left knee. He was having difficulty in ambulating but was able to drive himself to the emergency department this morning. Denies falls or other known injuries. He does walk up to 3 miles a day.Does report often feeling stiffness in the knees. Denies fever, chest pain, shortness of air. Review of Systems Constitutional: denies: Fever Cardiac: denies: Chest pain / pressure Respiratory: denies: Dyspnea Musculoskeletal: reports: Joint pain, Joint swelling Neurologic: denies: Head injury PD PAST MEDICAL HISTORY - Past Medical History Past Medical History: Yes Cardiovascular: Hypertension, High cholesterol Respiratory: None Neuro: None Endocrine/Autoimmune: Type 2 diabetes GI: None : None HEENT: None Psych: None Musculoskeletal: None Derm: None - Past Surgical History Past Surgical History: No General: Colonoscopy HEENT: Cataracts - Present Medications Home Medications: Ambulatory Orders Medication Instructions Recorded Confirmed Atorvastatin [Lipitor] 20 mg PO DAILY 10/11/20 05/06/23 Cholecalciferol [Vitamin D3] 400 unit PO MOTH 01/20/23 05/06/23 Losartan Potassium [Cozaar] 100 mg PO DAILY 01/20/23 05/06/23 Metformin HCl [Metformin ER 500 mg PO DAILY 01/20/23 05/06/23 Gastric] amLODIPine [Norvasc] 5 mg PO DAILY 01/20/23 05/06/23 Lidocaine Patch 5% [Lidoderm Patch] 1 patch TOP DAILY PRN #10 patch 06/12/23 Oxycodone HCl/Acetaminophen 1 each PO Q6H PRN #14 tablet 06/12/23 [Percocet 5-325 mg Tablet] - Allergies Allergies/Adverse Reactions: Allergies Allergy/AdvReac Type Severity Reaction Status Date / Time lisinopril Allergy Edema Verified 06/12/23 09:43 - Social History Does the pt smoke?: No Smoking Status: Never smoker Does the pt drink ETOH?: No Does the pt have substance abuse?: No - Immunizations Immunizations are current?: Yes - POLST Patient has POLST: No PD ED PE NORMAL - General General: Alert and oriented X 3, No acute distress, Well developed/nourished - HEENT HEENT: Atraumatic - Neck Neck: Supple, no meningeal sign, No bony TTP - Cardiac Cardiac: RRR, Strong equal pulses - Respiratory Respiratory: No respiratory distress - Extremities Extremities: Other (Swelling to left knee, tenderness medially, reports pain with flexion but able to range of motion;No overlying redness or warmth; No tenderness over femur or hip, distal pulses intact, sensation grossly intact) - Neuro Neuro: Normal speech Results - Vitals Vitals: Vital Signs - 24 hr 06/12/23 06/12/23 09:40 12:24 Temperature 37.2 C Heart Rate 97 88 Respiratory 20 14 Rate Blood Pressure 123/61 128/45 L O2 Saturation 99 100 Oxygen O2 Source Room air PD Medical Decision Making - ED course Complexity details: reviewed results, re-evaluated patient, d/w patient ED course: Pt is an 82yo M with L knee pain. Neurovascularly intact. No exam findings to suggest septic joint. XR which I reviewed is negative for fracture/dislocation. Pt feeling better with oxycodone and lidocaine patch and able to ambulate. Discussed continued supportive care and encouraged close follow up with PCP. Departure - Departure Disposition: 01 Home, Self Care Clinical Impression: Left knee pain Condition: Stable Instructions: ED Knee Pain UKO Follow-Up: GRUPO LORD [Primary Care Provider] - Prescriptions: Lidocaine Patch 5% [Lidoderm Patch] 1 patch TOP DAILY PRN #10 patch PRN Reason: pain Oxycodone HCl/Acetaminophen [Percocet 5-325 mg Tablet] 1 each PO Q6H PRN #14 tablet PRN Reason: pain Comments: I am prescribing a short course of narcotic pain medication for you. These are potentially dangerous and addictive medications that should be used carefully. These medications may constipate you. Take an wfln-oey-wadeptn stool softener (docusate) twice daily with plenty of water while taking these medications. If you go 24 hours without a bowel movement, take [id number] miralax, per package instructions. Do not drink or drive while taking these medications. If you received narcotic or sedating medications while in the emergency department, do not drive for 24 hours. Store this medication in a safe, secure place and out of reach of children. It is a violation of federal law to give or sell this medication to another person or to use in a manner other than prescribed. The ED will not refill narcotic prescriptions, including prescriptions lost or stolen. To dispose of unwanted medications: 1. [facility] at [address] in [place] has a medication drop box. They accept prescription medications (in pill form) Saturday through Saturday 9:00 a.m. to 5:00 p.m. 2. The [facility] [employer] accepts prescription medications (in pill form only) for disposal year round. Call for more information. 3. Contact the [facility] for the next [facility] sponsored prescription drug collection event. , [phone], or [phone]; Note that many narcotic pain relievers also contain Tylenol/acetaminophen. Please ensure that your total dose of acetaminophen from all sources does not exceed 3 g (3000 mg) per day. Your x-ray does not show a broken bone in your knee. Continue with an Roman wrap or knee brace, ice, anti-inflammatories such as acetaminophen. I sent prescriptions to [facility] in [place] including a narcotic pain medication which I would recommend only using sparingly. I would also recommend close follow-up with your primary care provider. Forms: PCP List Discharge Date/Time: 06/12/23 12:34
[2023-06-12 12:26] VITALS: BP 128/45; O2SAT 100
== END 2023-06-12 12:34 | disposition home or self-care (01) ==
LOC: ED 09:33
DX: M25.562 Pain in left knee (principal); I10 Essential (primary) hypertension; E11.9 Type 2 diabetes mellitus without complications; Z79.84 Long term (current) use of oral hypoglycemic drugs
CPT/HCPCS: 73562; 99283; A9270